=== PATIENT | male | born 1955 | race Hispanic/Latino ===

== ENCOUNTER 2018-11-23 07:03 | Day surgery (SDC) | payer MEDICARE ==
[2018-11-16 12:53] VITALS: BMI 36.8
[2018-11-23] MEDS ORDERED: Propofol 10 mg/ml Inj (20 ML) ONE ×2 (08:39→08:58)
[2018-11-23] MEDS ORDERED: Sodium Chloride 0.9% 1,000 ML IV SCH (08:45)
[2018-11-23] MEDS ORDERED: Phenylephrine 10 mg/ml Inj ONE (08:50)
[2018-11-23 12:34] VITALS: BP 124/72; PULSE 86; RESP 14; TEMP 98; O2SAT 97
== END 2018-11-23 11:15 | disposition home or self-care (01) ==
LOC: ENDO 07:03
PROVIDERS: ATTEND Specialist
DX: Z12.11 Encounter for screening for malignant neoplasm of colon (principal); D12.2 Benign neoplasm of ascending colon; D12.3 Benign neoplasm of transverse colon; K57.30 Diverticulosis of large intestine without perforation or abscess without bleeding; I10 Essential (primary) hypertension; B19.20 Unspecified viral hepatitis C without hepatic coma; M19.90 Unspecified osteoarthritis, unspecified site; E78.5 Hyperlipidemia, unspecified; Z87.442 Personal history of urinary calculi; Z86.010 Personal history of colon polyps
CPT/HCPCS: 45380; 45381; 45385; 72HRC

== ENCOUNTER 2018-11-23 12:51 | Inpatient (IN) | payer MEDICARE ==
[2018-11-23 12:51] VITALS: BMI 36.8
[2018-11-23] MEDS ORDERED: Sodium Chloride 0.9% 1,000 ML IV ONE (13:13)
--- NOTE | 2018-11-23 13:22 | ED PDOC ---
Arrival/HPI - General Chief Complaint: Shortness Of Breath Time Seen by Provider: 11/23/18 13:06 Historian: Patient - History of Present Illness Narrative History of Present Illness (Text): 11/23/18 13:22 63 year old male, with past medical history of colon polyps and diverticulosis, presents to the ED complaining of tremors, shortness of breath and palpitations s/p colonoscopy this morning. Patient states having colonoscopy performed for colon polyps without any complications with the procedure. Patient informs onset of symptoms after coming home, prompting him to contact Dr. Syed, who subsequently referred patient to the ED for medical evaluation. Patient denies any other associated somatic complaints. Patient denies any fevers, headache, dizziness, chest pain, cough, abdominal pain, nausea, vomiting, diarrhea, back pain, neck pain, or any other complaints. PMD: Dr. Chung GI: Dr. Syed Time/Duration: 1-3 hours Symptom Onset: Gradual Symptom Course: Unchanged Activities at Onset: Light Context: Home Past Medical History - Provider Review Nursing Documentation Reviewed: Yes - Infectious Disease Hx of Infectious Diseases: None - Cardiac Hx Pacemaker: No - Neurological Hx Paralysis: No - Musculoskeletal/Rheumatological Hx Musculoskeletal Disorders: Yes - Psychiatric Hx Emotional Abuse: No Hx Physical Abuse: No Hx Substance Use: No - Anesthesia Hx Anesthesia Reactions: Yes (MANY YEARS AGO SOB) Hx Malignant Hyperthermia: No - Suicidal Assessment Feels Threatened In Home Enviroment: No Family/Social History - Physician Review Nursing Documentation Reviewed: Yes Family/Social History: Unknown Family HX Hx Alcohol Use: No (QUIT 37 YEARS AGO) Hx Substance Use: No Allergies/Home Meds Allergies/Adverse Reactions: Allergies No Known Allergies Allergy (Verified 06/20/14 12:55) Home Medications: Home Meds Medication Instructions Recorded Confirmed Allopurinol 300 mg PO QAM 06/20/14 11/23/18 Ergocalciferol [Vitamin D2] 50,000 iu PO MON 06/20/14 11/23/18 Levocetirizine Dihydrochloride 5 mg PO HS 06/20/14 11/23/18 Metoprolol Tartrate 25 mg PO BID 06/20/14 11/23/18 Omeprazole 40 mg PO QAM 06/20/14 11/23/18 Diltiazem HCl [Diltiazem ER] 240 mg PO DAILY 11/16/18 11/23/18 Losartan Potassium [Cozaar] 100 mg PO DAILY 11/16/18 11/23/18 Review of Systems - Physician Review All systems were reviewed & negative as marked: Yes - Review of Systems Constitutional: Other (Tremors). absent: Fevers Respiratory: SOB. absent: Cough Cardiovascular: Palpitations. absent: Chest Pain, JAY Gastrointestinal: absent: Abdominal Pain, Diarrhea, Nausea, Vomiting Genitourinary Male: absent: Dysuria, Urinary Output Changes Musculoskeletal: absent: Back Pain, Neck Pain Skin: absent: Rash Neurological: absent: Headache, Dizziness Physical Exam - Physical Exam Narrative Physical Exam (Text): 11/23/18 13:26 Constitutional: No acute distress. Tremulous. Head: Normocephalic. Atraumatic. Eyes: PERRL. ENT: Moist mucous membranes. Neck: Supple. Cardiovascular: Tachycardia. Chest: No tenderness. Respiratory: Clear to auscultation bilaterally. GI: Soft. Nontender. Nondistended. Back: No CVA tenderness. Musculoskeletal: No tenderness or swelling of extremities. Skin: No rash. Neurologic: Alert, no focal deficit. Vital Signs Reviewed: Yes Vital Signs Temp Pulse Resp BP Pulse Ox 11/23/18 13:20 100.3 F H 145 H 18 118/61 93 L Temperature: Febrile Blood Pressure: Normal Pulse: Tachycardic Respiratory Rate: Normal Appearance: Positive for: Well-Appearing, Non-Toxic, Comfortable Pain Distress: None Mental Status: Positive for: Alert and Oriented X 3 Medical Decision Making ED Course and Treatment: 11/23/18 13:13 Impression: 63 year old male presents to the ED for evaluation of tremors, palpitations and shortness of breath s/p colonoscopy this morning. Plan: -- VBG -- EKG -- Labs -- Chest X-ray -- IV Fluids -- Tylenol -- Blood Culture -- Urine Culture -- Influenza A B -- Urinalysis -- Reassess and disposition Prior Visits: Notes and results from previous visits were reviewed. Progress Notes: 11/23/18 13:13 EKG: Ordered, reviewed, and independently interpreted the EKG. Rate : 150 BPM Rhythm : Sinus Tachycardia Interpretation : No ST-segment elevations . 11/23/18 13:36 Code sepsis activated. 11/23/18 15:27 CT Abdomen and Pelvis, reviewed by radiologist: IMPRESSION: 1. Large heterogeneous mass in the right hepatic lobe incompletely characterized on this noncontrast CT examination. A dedicated CT scan/MRI of the abdomen without and with intravenous contrast with liver protocol is recommended for definitive characterization. 2. Bilateral nephrolithiasis, the largest non nonobstructing stone in the right interpolar region measures 6 mm. 3. 6 mm high density lesion in the interpolar region of the right kidney is statistically most compatible with a hemorrhagic cyst however correlation with CT scan of the abdomen without and with intravenous contrast is recommended for definitive evaluation. Chest X-ray, reviewed by radiologist: IMPRESSION: Confluent airspace disease in the right lung base and patchy airspace disease in the left lower lobe may represent multifocal pneumonia. Follow-up after medical management is recommended to ensure complete resolution. ICU evaluated patient, will repeat labs, telemetry admission for the time being, may upgrade to ICU depending on renal function and lactate. Dr. Trejo accepts patient onto his service. - RAD Interpretation Radiology Orders: 11/23/18 13:13 CHEST PORTABLE [RAD] Stat - EKG Interpretation Interpreted by ED Physician: Yes Type: 12 lead EKG - Medication Orders Current Medication Orders: Acetaminophen (Tylenol 325mg Tab) 975 mg PO ONCE PRN PRN Reason: Fever >100.4 F Sodium Chloride (Sodium Chloride 0.9%) 1,000 mls @ 2,000 mls/hr IV .Q30M ONE Stop: 11/23/18 13:42 - Scribe Statement The provider has reviewed the documentation as recorded by the Scribe Enoch Solis. All medical record entries made by the Scribe were at my direction and personally dictated by me. I have reviewed the chart and agree that the record accurately reflects my personal performance of the history, physical exam, medical decision making, and the department course for this patient. I have also personally directed, reviewed, and agree with the discharge instructions and disposition. Disposition/Present on Arrival - Present on Arrival Any Indicators Present on Arrival: No History of DVT/PE: No History of Uncontrolled Diabetes: No Urinary Catheter: No History of Decub. Ulcer: No History Surgical Site Infection Following: None - Disposition Have Diagnosis and Disposition been Completed?: Yes Diagnosis: Severe sepsis, Aspiration pneumonia Disposition: HOSPITALIZED Disposition Time: 15:28 Patient Plan: Admission, ICU Condition: GUARDED
[2018-11-23 13:30] LABS: VENOUS BLOOD GAS BASE EXCESS -7.8 mmol/L (0.0-2.0); VENOUS BLOOD GAS PO2 31 mm/Hg (30-55); VENOUS BLOOD PH 7.31 (7.32-7.43)
[2018-11-23 13:36] LABS: BASO # 0.02 K/mm3 (0.0-2.0); BASO % 0.1 % (0.0-3.0); EOS % 0.1 % (1.5-5.0); GRAN # 10.95 (1.4-6.5); GRAN % 79.9 % (50.0-68.0); HEMOGLOBIN 12.7 g/dL (14.0-18.0); LYMPH # 2.4 (1.2-3.4); LYMPH % 17.2 % (22.0-35.0); MEAN CELL VOLUME 86.7 fl (80.0-105.0); MEAN CORPUSCULAR HEMOGLOBIN 26.8 pg (25.0-35.0); MEAN PLATELET VOLUME 10.2 fl (7.0-11.0); MONO # 0.4 (0.1-0.6); MONO % 2.7 % (1.0-6.0); RBC 4.73 10^6/uL (3.5-6.1); RED CELL DISTRIBUTION WIDTH 14.9 % (11.5-14.5); WHITE BLOOD COUNT 13.7 10^3/uL (4.5-11.0)
[2018-11-23] MEDS ORDERED: Vancomycin 1gm in NS 250ml 1 GM/250 ML BAG IVPB STA (13:36)
[2018-11-23] MEDS ORDERED: Piperacill/Tazo 4.5gm in NS 4.5 GM/100 ML BAG IVPB STA (13:36)
[2018-11-23 13:41] LABS: ALBUMIN 4.2 g/dL (3.0-4.8); CALCIUM 9.5 mg/dL (8.4-10.5)
[2018-11-23 13:45] LABS: INR 1.29; PROTHROMBIN TIME 14.9 SECONDS (9.4-12.5)
[2018-11-23 14:00] LABS: PARTIAL THROMBOPLASTIN TIME 22.9 Seconds (25.1-36.5)
--- NOTE | 2018-11-23 14:18 | RAD ---
Date of service: 11/23/2018 HISTORY: Sepsis Patient COMPARISON: No prior. FINDINGS: LUNGS: Lungs are well inflated. There is confluent airspace disease in the right lung base and patchy airspace disease in the left lower lobe. There is mild pulmonary venous congestion. PLEURA: No pleural effusions or pneumothorax. CARDIOVASCULAR: The heart is normal in size. No aortic atherosclerotic calcification present. OSSEOUS STRUCTURES: Within normal limits for the patient's age. VISUALIZED UPPER ABDOMEN: Normal. OTHER FINDINGS: None. IMPRESSION: Confluent airspace disease in the right lung base and patchy airspace disease in the left lower lobe may represent multifocal pneumonia. Follow-up after medical management is recommended to ensure complete resolution.
[2018-11-23] MEDS ORDERED: Clindamycin 600mg/50ml D5W 600 MG/50 ML VIAL IVPB STA (14:29)
[2018-11-23 14:41] LABS: PH,URINE 5.5 (4.7-8.0); URINE BILIRUBIN NEGATIVE (NEGATIVE); URINE BLOOD NEGATIVE (NEGATIVE); URINE GLUCOSE (UA) NEGATIVE (NEGATIVE); URINE LEUKOCYTE ESTERASE NEGATIVE Leu/uL (NEGATIVE); URINE PROTEIN TRACE mg/dL (<30 mg/dL); URINE UROBILINOGEN 0.2 E.U./dL (<1 E.U./dL)
[2018-11-23 14:42] LABS: URINE APPEARANCE CLEAR (CLEAR); URINE COLOR YELLOW (YELLOW)
[2018-11-23 14:44] LABS: URINE RBC 0 - 2 /hpf (0-2); URINE WBC 0 - 2 /hpf (0-6)
[2018-11-23 14:45] LABS: URINE AMORPHOUS SEDIMENT FEW /hpf; URINE BACTERIA MOD /hpf
--- NOTE | 2018-11-23 15:17 | CT ---
Date of service: 11/23/2018 PROCEDURE: CT Abdomen and Pelvis without intravenous contrast HISTORY: colonoscopy today, septic COMPARISON: None. TECHNIQUE: CT scan of the abdomen and pelvis was performed without administration of intravenous contrast. Oral contrast was not administered. Coronal and sagittal reformatted images were obtained. . Radiation dose: Total exam DLP = 1171.21 mGy-cm. This CT exam was performed using one or more of the following dose reduction techniques: Automated exposure control, adjustment of the mA and/or kV according to patient size, and/or use of iterative reconstruction technique. FINDINGS: LOWER THORAX: There is subsegmental atelectasis in the visualized lower lobes worse on the left. LIVER: There is a large 15.1 x 10.4 x 12.3 cm heterogeneous mass in the right hepatic lobe. There are coarse eccentric calcifications anterior inferiorly in the mass. Moderate hepatomegaly. No intrahepatic ductal dilatation. GALLBLADDER AND BILE DUCTS: No calcified gallstones. No biliary dilatation. PANCREAS: Normal in size. No ductal dilatation. SPLEEN: Mild splenomegaly. ADRENALS: Normal in size. No discrete nodule. KIDNEYS AND URETERS: Both kidneys are normal in size. There are nonobstructing stones in both kidneys, the largest in the right interpolar region measures 6 mm. There is a 9 mm high attenuation lesion in the right interpolar region. VASCULATURE: No aortic aneurysm. There are aortic atherosclerotic calcifications present. BOWEL: The small bowel loops are normal in caliber. The colon is normal in size. No bowel dilatation or wall thickening. No bowel obstruction. APPENDIX: Not visualized. No inflammatory changes in the right lower quadrant. PERITONEUM: No free fluid. No free air. LYMPH NODES: No enlarged lymph nodes. BLADDER: Well distended and grossly normal in appearance. REPRODUCTIVE: The prostate gland is normal in size with central coarse calcifications. BONES: No acute fracture. Multilevel degenerative changes in the spine, worse at L2-3 with mild degenerative retrolisthesis of L2 on L3. OTHER FINDINGS: None. IMPRESSION: 1. Large heterogeneous mass in the right hepatic lobe incompletely characterized on this noncontrast CT examination. A dedicated CT scan/MRI of the abdomen without and with intravenous contrast with liver protocol is recommended for definitive characterization. 2. Bilateral nephrolithiasis, the largest non nonobstructing stone in the right interpolar region measures 6 mm. 3. 6 mm high density lesion in the interpolar region of the right kidney is statistically most compatible with a hemorrhagic cyst however correlation with CT scan of the abdomen without and with intravenous contrast is recommended for definitive evaluation.
[2018-11-23 16:26] LABS: VENOUS BLOOD GAS BASE EXCESS -1.5 mmol/L (0.0-2.0); VENOUS BLOOD GAS PO2 164 mm/Hg (30-55); VENOUS BLOOD PH 7.46 (7.32-7.43)
[2018-11-23 16:28] LABS: BASO # 0.01 K/mm3 (0.0-2.0); BASO % 0.1 % (0.0-3.0); EOS % 0.1 % (1.5-5.0); GRAN # 9.35 (1.4-6.5); GRAN % 86.3 % (50.0-68.0); HEMOGLOBIN 10.8 g/dL (14.0-18.0); LYMPH # 0.8 (1.2-3.4); LYMPH % 6.9 % (22.0-35.0); MEAN CELL VOLUME 84.4 fl (80.0-105.0); MEAN CORPUSCULAR HEMOGLOBIN 26.7 pg (25.0-35.0); MEAN CORPUSCULAR HGB CONC 31.7 g/dl (31.0-37.0); MEAN PLATELET VOLUME 9.4 fl (7.0-11.0); MONO # 0.7 (0.1-0.6); MONO % 6.6 % (1.0-6.0); RBC 4.04 10^6/uL (3.5-6.1); RED CELL DISTRIBUTION WIDTH 14.9 % (11.5-14.5); WHITE BLOOD COUNT 10.8 10^3/uL (4.5-11.0)
--- NOTE | 2018-11-23 16:29 | PCM.SEPTIC ---
Sepsis Progress Note - Reassessment Type Date of Evaluation: 11/23/18 Time of Evaluation: 16:29 Reassessment Type: Non-invasive reassessment - Non Invasive Reassessment Were the most recent vital sign reviewed: Yes Vital Sign (Latest): Temp Pulse Resp BP Pulse Ox 102.5 F H 120 H 18 105/50 L 91 L 11/23/18 15:00 11/23/18 15:00 11/23/18 15:00 11/23/18 15:00 11/23/18 15:00 Cardiovascular: Yes: Regular Rate, Rhythm, Tachycardia. No: JVD, Murmur Respiratory: Yes: Normal Breath Sounds. No: Accessory Muscle Use, Rhonchi, Wheezing, Respiratory Distress Capillary Refill: Normal (Less than 2 sec) Skin: Normal Color, Warm, Dry <Grace Smith - Last Filed: 11/23/18 17:03> - Non Invasive Reassessment Vital Sign (Latest): Temp Pulse Resp BP Pulse Ox 99.2 F 90 18 144/82 99 11/25/18 06:00 11/25/18 10:05 11/25/18 06:00 11/25/18 10:05 11/25/18 06:00 Cardiovascular: No: Regular Rate, Rhythm (Not attending of record for this resident. HR according to listed VS is tachycardic) <Lamonte Corrigan - Last Filed: 11/25/18 12:35>
[2018-11-23 17:10] LABS: ALB/GLOB RATIO 0.9 (1.1-1.8); ALBUMIN 3.1 g/dL (3.0-4.8); ALT/SGPT 33 U/L (7-56); AST/SGOT 64 U/L (17-59); BLOOD UREA NITROGEN 22 mg/dL (7-21); CALCIUM 8.1 mg/dL (8.4-10.5); GFR NON-AFRICAN AMERICAN 51; TROPONIN I 0.31 ng/mL
--- NOTE | 2018-11-23 17:23 | CARD ---
APPROVED REPORT Date of service: 11/23/2018 EKG Measurement Heart [id number] <Conclusion> Supraventricular tachycardia Inferior infarct, age undetermined Abnormal ECG
[2018-11-23] MEDS: Linezolid 600 mg in D5W 300 ml 600 MG/300 ML BAG IVPB SCH (23:51)
[2018-11-23] MEDS: Meropenem IV 1 gm in NS 1 GM/50 ML BAG IVPB SCH (23:52)
--- NOTE | 2018-11-24 02:00 | CON ---
DATE: 11/23/2018 This is a 63-year-old gentleman with history of hypertension, hepatitis C, colon polyps, and diverticulosis, who presented to ER complaining of high fever, tremor, shortness of breath, and palpitation after colonoscopy this morning by Dr. Syed. The patient reports that he was not aware about any complication of the procedure as Dr. Syed spoke with him after the colonoscopy. Once he found out about the patient's acute onset of symptoms, he was referred to [facility] ER for further management and monitoring. T-max reported 104. The patient, however, denies chest pain, cough, abdominal pain, nausea, vomiting, diarrhea, back pain, or neck pain. PAST MEDICAL HISTORY: Diverticulosis, colon polyps, hypertension, hepatitis C. SOCIAL HISTORY: The patient is ex-smoker. No alcohol or illicit drug abuse. ALLERGIES: NKDA. MEDICATIONS AT HOME: Allopurinol, vitamin D, metoprolol, omeprazole, diltiazem ER, and Cozaar. FAMILY HISTORY: Noncontributory. REVIEW OF SYSTEMS: Review of 12-organ systems other than mentioned in history of present illness is negative. PHYSICAL EXAMINATION: VITAL SIGNS: T-max 104.6, however, currently, the patient is afebrile; blood pressure 120/60; heart rate 100 to 105; oxygen saturation 95% on 2 liters nasal cannula; respiratory rate 18. GENERAL: The patient is talking in full sentences, he reports subjectively feeling much better. HEENT: Head and neck atraumatic. LUNGS: Few crackles bibasilarly. HERAT: Regular rate and rhythm, S1, S2 normal. ABDOMEN: Soft, nontender, nondistended. MUSCULOSKELETAL: Trace bilateral pedal and ankle edema. NEUROLOGIC: The patient moves all extremities spontaneously. SKIN: Moist. PSYCHIATRIC: The patient is alert, awake, oriented x3. Comfortable, not in respiratory or otherwise distress. LABORATORIES: WBC 13.7, hemoglobin 12.7, platelet count 427. Sodium 138, potassium 4.3, chloride 103, carbon dioxide 18, BUN 23, creatinine 1.5. AST 72, ALT 33, total bilirubin 0.7, magnesium 1.8, phosphorus 4.1, albumin 4.2. Venous blood gas showed pH 7.31, lactic acid 9.4, pCO2 of 35. Influenza negative. Urine negative for urine nitrites and leukocyte esterase. INR 1.29. Medications given in the emergency room include Tylenol, clindamycin. The patient received 3 liters of normal saline. Vancomycin and Zosyn were also given in the emergency room. Chest x-ray showed bibasilar airspace disease, left lower lobe infiltrate, more predominant. CT of the abdomen and pelvis revealed large hepatic mass, which is heterogeneous in nature in the right hepatic lobe; bilateral nephrolithiasis; nonobstructive stones. ASSESSMENT AND PLAN: This is a 63-year-old gentleman who presented with what appears to be severe sepsis due to lower respiratory tract infection (pneumonia versus aspiration pneumonitis). No signs of viscous perforation on the CAT scan or any other acute findings (CT abdomen besides official report was also discussed with Dr. Tyson Carr and the mass in the liver does not appear to be abscess even though it is hard to be definite about it as study was done without contrast). The patient, however, substantially improved after fluid resuscitation and initial antibiotics. Septic workup would be definitely recommended including urine culture, blood culture, urine for legionella and streptococcal antigen. Even though a rapid flu test is negative, I wll recommend to proceed with Tamiflu. Infectious disease consult was also requested and that will be deferred to him. The patient is much improved, in good spirit. His blood pressure and heart rate also substantially improved. We will repeat CBC, CMP, lactic acid level, and troponin level. If lab results corroborate improvement in his clinical picture, the patient may be going to telemetry for further monitoring. I would also get procalcitonin level and trend it. We will continue to target euvolemia, euglycemia, normothermia, and oxygen saturation more than 90%. We will continue with DVT, GI prophylaxis. GI followup/consultation would be reasonable to decide whether to proceed with further workup of the hepatic mass, which may need to have hepatoma ruled out as the patient has hepatitis C history. Addendum: lsctic acidosis resolved, creatinine is down to 1.4, leukocytosis resolved. BP/HR relatively stable. trop slightly elevated-->will need to trend, however it is most likely due to previous tachycardia-->no chest pain and no specific ischemic changes on EKG: will get cardiology consult to consider echo, but no need for ICU at present time. If clinical situation worsened (hypotension, chest pain, uncontrolled severe tachycardia, respiratory distress, hypoxemia etc), please call icu for reconsult. ccm time 40 min Balaji Barrios MD BRIANA
[2018-11-24 07:30] LABS: HEMOGLOBIN 10.6 g/dL (14.0-18.0); MEAN CELL VOLUME 85.3 fl (80.0-105.0); MEAN CORPUSCULAR HEMOGLOBIN 26.4 pg (25.0-35.0); MEAN PLATELET VOLUME 9.7 fl (7.0-11.0); RBC 4.01 10^6/uL (3.5-6.1); RED CELL DISTRIBUTION WIDTH 15.1 % (11.5-14.5); WHITE BLOOD COUNT 15.1 10^3/uL (4.5-11.0)
[2018-11-24 07:42] LABS: ALB/GLOB RATIO 0.9 (1.1-1.8); ALBUMIN 3.1 g/dL (3.0-4.8); ALT/SGPT 38 U/L (7-56); AST/SGOT 381 U/L (17-59); BLOOD UREA NITROGEN 20 mg/dL (7-21); CALCIUM 8.8 mg/dL (8.4-10.5); GFR NON-AFRICAN AMERICAN > 60
--- NOTE | 2018-11-24 08:15 | CP.PCM.CON ---
<RetaMelody - Last Filed: 11/24/18 13:24> History of Present Illness - History of Present Illness History of Present Illness: PGY-[address] Aguirre ID consult: CAP Mr Velázquez, 63M, with PMH Hep C, liver disease, colon polyps, diverticulosis, and questionable allergy to anesthesia many years ago came to the ED c/o tremors, palpitations, SOB. Pt underwent colonoscopy yesterday morning (11/23/18). Colonscopy found diverticulosis with 5 polyps, biopsied (biggest 15mm in ascending colon, hot snare, clipped). pt was told No ASA, NSAID x 2 weeks. After returning home from the procedure, pt c/o tremors, palpitations, SOB. Pt started to have sore throat 2 weeks ago. Then 3 days ago, dry cough with R upper back pain, and chills. He had flu shot this year (+) animal contact, cockatiel at home. ROS: denies any fevers, headache, dizziness, chest pain, cough, abdominal pain, nausea, vomiting, diarrhea, back pain, neck pain, or any other complaints. PMH HTN/HLD/PVD Hep C, treated, last med 05/05, (+) detectable viral load Liver disease, Hx colon polyps Arthritis, gout, peripheral edema Hx kidney stones, b/l, s/p laser lithotripsy 2012 with stents Vertigo former smoker, quit 1987 Anxiety, occasional PSH Knee replacement R (09/2017),L (11/2017) Cyctoscopy with stents s/p removal (4 years ago) lithotripsy Inguinal Hernia repair with mesh (10/18/2016) EGD Colonoscopy FH Father, [place], 70yo Denies FH of cancer SH Quit smoking 1987; Quit ETOH 37 years ago, denies drugs. Live senior building All Anesthesia, SOB, many years ago Med Allupurionl, vit D2, levocetirizine, metoprolol, omeprazole, diltiazem, losartan PMD: Dr Chung GI: Dr Syed Urol: Dr Noriega Upon ED arrival, T 104.6, HR 145, RR 36, PaO2 93NC CBC: WBC 13.7, Hb 12.7 (Mcv 86.7), Lactate 9.4, procalcitonin 17.45 LFT 72/33, TB normal, INR 1.29, alb 4.2 U/A neg, flu neg EKG: Sinus tachycardia 150 BPM. TWI in II, III. QTc 522 CXR: Confluent airspace disease in R lung base, patchy airspace, Left lower lobe, multifocal PNA. CT A/P: Large mass in R hepatic lobe, bilateral nephrolithiasis (non- obstructing, largest R 6mm), kidney cyst ? hemorrhagic, 6mm Blood culture and urine culture obtained. pending MRSA, sputum cx. He got tamifly, Vanco and zosyn x 1, started merem and linezolid Past Patient History - Infectious Disease Hx of Infectious Diseases: None - Past Social History Smoking Status: Never Smoked - CARDIAC Hx Cardiac Disorders: Yes Hx Hypertension: Yes Hx Pacemaker: No - PULMONARY Hx Respiratory Disorders: No - NEUROLOGICAL Hx Neurological Disorder: No - HEENT Hx HEENT Problems: Yes (vertigo) - RENAL Hx Chronic Kidney Disease: No - ENDOCRINE/METABOLIC Hx Endocrine Disorders: No - HEMATOLOGICAL/ONCOLOGICAL Hx Blood Disorders: Yes Hx Hepatitis C: Yes - INTEGUMENTARY Hx Dermatological Problems: No - MUSCULOSKELETAL/RHEUMATOLOGICAL Hx Musculoskeletal Disorders: Yes Hx Arthritis: Yes Hx Back Pain: Yes Hx Falls: No - GASTROINTESTINAL Hx Gastrointestinal Disorders: No - GENITOURINARY/GYNECOLOGICAL Hx Genitourinary Disorders: No - PSYCHIATRIC Hx Psychophysiologic Disorder: No - SURGICAL HISTORY Hx Surgeries: Yes Hx Cholecystectomy: Yes Hx Orthopedic Surgery: Yes (b/l knee) - ANESTHESIA Hx Anesthesia Reactions: Yes (MANY YEARS AGO SOB) Hx Malignant Hyperthermia: No Meds Allergies/Adverse Reactions: Allergies Allergy/AdvReac Type Severity Reaction Status Date / Time No Known Allergies Allergy Verified 06/20/14 12:55 - Medications Medications: Current Medications Acetaminophen (Tylenol 325mg Tab) 975 mg PO ONCE PRN PRN Reason: Fever >100.4 F Last Admin: 11/23/18 13:34 Dose: 975 mg Allopurinol (Zyloprim) 300 mg PO DAILY [facility] Diltiazem HCl (Cardizem Cd) 240 mg PO DAILY [facility] Meropenem (Merrem Iv 1 Gm Premix) 1 gm in 50 mls @ 100 mls/hr IVPB Q12 [facility]; Protocol Stop: 12/01/18 22:22 Last Admin: 11/23/18 23:52 Dose: 100 mls/hr Linezolid (Zyvox 600mg/300ml D5w) 600 mg in 300 mls @ 200 mls/hr IVPB Q12 [facility]; Protocol Stop: 12/01/18 22:22 Last Admin: 11/23/18 23:51 Dose: 200 mls/hr Losartan Potassium (Cozaar) 100 mg PO DAILY [facility] Metoprolol Tartrate (Lopressor) 25 mg PO BRKDIN [facility] Last Admin: 11/24/18 07:51 Dose: 25 mg Physical Exam - Constitutional Appears: No Acute Distress - Head Exam Head Exam: ATRAUMATIC, NORMAL INSPECTION, NORMOCEPHALIC - Eye Exam Eye Exam: EOMI, Normal appearance, PERRL. absent: Scleral icterus Pupil Exam: NORMAL ACCOMODATION - ENT Exam ENT Exam: Mucous Membranes Moist - Neck Exam Additional comments: supple - Respiratory Exam Respiratory Exam: Decreased Breath Sounds (RUL), Clear to Auscultation Bilateral. absent: Rales, Rhonchi, Wheezes - Cardiovascular Exam Cardiovascular Exam: REGULAR RHYTHM, +S1, +S2 - GI/Abdominal Exam GI & Abdominal Exam: Normal Bowel Sounds, Soft. absent: Distended, Firm, Guarding, Rigid, Tenderness - Extremities Exam Extremities exam: Negative for: calf tenderness, pedal edema - Back Exam Back exam: CVA tenderness (L), CVA tenderness (R) - Neurological Exam Neurological exam: Alert, Oriented x3 - Psychiatric Exam Psychiatric exam: Normal Affect, Normal Mood - Skin Skin Exam: Dry, Warm Results - Vital Signs Recent Vital Signs: Last Vital Signs Temp 98.0 F 11/24/18 06:00 Pulse 84 11/24/18 06:00 Resp 20 11/24/18 06:00 BP 128/72 11/24/18 07:51 Pulse Ox 97 11/24/18 06:00 - Labs Result Diagrams: 11/24/18 07:00 11/24/18 07:00 Labs: Laboratory Results - last 24 hr 11/23/18 11/23/18 11/23/18 13:15 13:15 13:15 WBC 13.7 H RBC 4.73 Hgb 12.7 L Hct 41.0 L MCV 86.7 MCH 26.8 MCHC 31.0 RDW 14.9 H Plt Count 427 MPV 10.2 Gran % 79.9 H Lymph % (Auto) 17.2 L [place] % (Auto) 2.7 Eos % (Auto) 0.1 L Baso % (Auto) 0.1 Gran # 10.95 H Lymph # (Auto) 2.4 [place] # (Auto) 0.4 Eos # (Auto) 0.0 Baso # (Auto) 0.02 PT 14.9 H INR 1.29 APTT 22.9 L pO2 31 VBG pH 7.31 L VBG pCO2 35.0 L VBG HCO3 17.6 L VBG Total CO2 18.7 L VBG O2 Sat (Calc) 56.3 VBG Base Excess -7.8 L VBG Potassium 4.2 Sodium 136.0 Chloride 100.0 Glucose 144 H Lactate 9.4 H* FiO2 21.0 Potassium Carbon Dioxide Anion Gap BUN Creatinine Est GFR ( Amer) Est GFR (Non-Af Amer) Random Glucose Calcium Phosphorus Magnesium Total Bilirubin AST ALT Alkaline Phosphatase Troponin I Total Protein Albumin Globulin Albumin/Globulin Ratio Procalcitonin Venous Blood Potassium 4.2 Urine Color Urine Appearance Urine pH Ur Specific Greene Urine Protein Urine Glucose (UA) Urine Ketones Urine Blood Urine Nitrate Urine Bilirubin Urine Urobilinogen Ur Leukocyte Esterase Urine RBC Urine WBC Ur Epithelial Cells Amorphous Sediment Urine Bacteria Influenza Typ A,B (EIA) 11/23/18 11/23/18 11/23/18 13:15 14:15 14:15 WBC RBC Hgb Hct MCV MCH MCHC RDW Plt Count MPV Gran % Lymph % (Auto) [place] % (Auto) Eos % (Auto) Baso % (Auto) Gran # Lymph # (Auto) [place] # (Auto) Eos # (Auto) Baso # (Auto) PT INR APTT pO2 VBG pH VBG pCO2 VBG HCO3 VBG Total CO2 VBG O2 Sat (Calc) VBG Base Excess VBG Potassium Sodium 138 Chloride 103 Glucose Lactate FiO2 Potassium 4.3 Carbon Dioxide 18 L Anion Gap 21 H BUN 23 H Creatinine 1.5 Est GFR ( Amer) 57 Est GFR (Non-Af Amer) 47 Random Glucose 143 H Calcium 9.5 Phosphorus 4.1 Magnesium 1.8 Total Bilirubin 0.7 AST 72 H ALT 33 Alkaline Phosphatase 105 Troponin I Total Protein 8.2 Albumin 4.2 Globulin 4.0 Albumin/Globulin Ratio 1.0 L Procalcitonin Venous Blood Potassium Urine Color Yellow Urine Appearance Clear Urine pH 5.5 Ur Specific Greene 1.020 Urine Protein Trace H Urine Glucose (UA) Negative Urine Ketones Negative Urine Blood Negative Urine Nitrate Negative Urine Bilirubin Negative Urine Urobilinogen 0.2 Ur Leukocyte Esterase Negative Urine RBC 0 - 2 Urine WBC 0 - 2 Ur Epithelial Cells None Amorphous Sediment Few Urine Bacteria Mod Influenza Typ A,B (EIA) Negative for flu a/b 11/23/18 11/23/18 11/23/18 16:15 16:15 16:15 WBC 10.8 D RBC 4.04 Hgb 10.8 L Hct 34.1 L MCV 84.4 MCH 26.7 MCHC 31.7 RDW 14.9 H Plt Count 231 MPV 9.4 Gran % 86.3 H Lymph % (Auto) 6.9 L [place] % (Auto) 6.6 H Eos % (Auto) 0.1 L Baso % (Auto) 0.1 Gran # 9.35 H Lymph # (Auto) 0.8 L [place] # (Auto) 0.7 H Eos # (Auto) 0.0 Baso # (Auto) 0.01 PT INR APTT pO2 164 H VBG pH 7.46 H VBG pCO2 30.0 L VBG HCO3 21.3 VBG Total CO2 22.2 VBG O2 Sat (Calc) 99.8 H VBG Base Excess -1.5 L VBG Potassium 3.4 L Sodium 137.0 136 Chloride 107.0 109 H Glucose 101 Lactate 1.9 FiO2 21.0 Potassium 3.4 L Carbon Dioxide 20 L Anion Gap 10 BUN 22 H Creatinine 1.4 Est GFR ( Amer) > 60 Est GFR (Non-Af Amer) 51 Random Glucose 99 Calcium 8.1 L Phosphorus 1.3 L* Magnesium 1.6 L Total Bilirubin 0.6 AST 64 H ALT 33 Alkaline Phosphatase 105 Troponin I 0.31 H* Total Protein 6.5 Albumin 3.1 Globulin 3.4 Albumin/Globulin Ratio 0.9 L Procalcitonin Venous Blood Potassium 3.4 L Urine Color Urine Appearance Urine pH Ur Specific Greene Urine Protein Urine Glucose (UA) Urine Ketones Urine Blood Urine Nitrate Urine Bilirubin Urine Urobilinogen Ur Leukocyte Esterase Urine RBC Urine WBC Ur Epithelial Cells Amorphous Sediment Urine Bacteria Influenza Typ A,B (EIA) 11/23/18 11/23/18 11/24/18 17:00 20:00 07:00 WBC 15.1 H D RBC 4.01 Hgb 10.6 L Hct 34.2 L MCV 85.3 MCH 26.4 MCHC 31.0 RDW 15.1 H Plt Count 221 MPV 9.7 Gran % Lymph % (Auto) [place] % (Auto) Eos % (Auto) Baso % (Auto) Gran # Lymph # (Auto) [place] # (Auto) Eos # (Auto) Baso # (Auto) PT INR APTT pO2 VBG pH VBG pCO2 VBG HCO3 VBG Total CO2 VBG O2 Sat (Calc) VBG Base Excess VBG Potassium Sodium Chloride Glucose Lactate FiO2 Potassium Carbon Dioxide Anion Gap BUN Creatinine Est GFR ( Amer) Est GFR (Non-Af Amer) Random Glucose Calcium Phosphorus Magnesium Total Bilirubin AST ALT Alkaline Phosphatase Troponin I 0.32 H* Total Protein Albumin Globulin Albumin/Globulin Ratio Procalcitonin 17.45 H Venous Blood Potassium Urine Color Urine Appearance Urine pH Ur Specific Greene Urine Protein Urine Glucose (UA) Urine Ketones Urine Blood Urine Nitrate Urine Bilirubin Urine Urobilinogen Ur Leukocyte Esterase Urine RBC Urine WBC Ur Epithelial Cells Amorphous Sediment Urine Bacteria Influenza Typ A,B (EIA) 11/24/18 07:00 WBC RBC Hgb Hct MCV MCH MCHC RDW Plt Count MPV Gran % Lymph % (Auto) [place] % (Auto) Eos % (Auto) Baso % (Auto) Gran # Lymph # (Auto) [place] # (Auto) Eos # (Auto) Baso # (Auto) PT INR APTT pO2 VBG pH VBG pCO2 VBG HCO3 VBG Total CO2 VBG O2 Sat (Calc) VBG Base Excess VBG Potassium Sodium 137 Chloride 109 H Glucose Lactate FiO2 Potassium 3.8 Carbon Dioxide 26 Anion Gap 6 L BUN 20 Creatinine 1.2 Est GFR ( Amer) > 60 Est GFR (Non-Af Amer) > 60 Random Glucose 91 Calcium 8.8 Phosphorus Magnesium Total Bilirubin 0.5 AST 381 H D ALT 38 Alkaline Phosphatase 86 Troponin I Total Protein 6.6 Albumin 3.1 Globulin 3.4 Albumin/Globulin Ratio 0.9 L Procalcitonin Venous Blood Potassium Urine Color Urine Appearance Urine pH Ur Specific Greene Urine Protein Urine Glucose (UA) Urine Ketones Urine Blood Urine Nitrate Urine Bilirubin Urine Urobilinogen Ur Leukocyte Esterase Urine RBC Urine WBC Ur Epithelial Cells Amorphous Sediment Urine Bacteria Influenza Typ A,B (EIA) Assessment & Plan - Assessment and Plan (Free Text) Plan: Mr Plachta, 63M, with PMH Hep C (treated), liver disease, colon polyps, diverticulosis, and questionable allergy to anesthesia many years ago came to the ED c/o tremors, palpitations, SOB. Pt underwent colonoscopy yesterday morning (11/23/18). Pt had upper respiratory viral symptoms last week. Sepsis (T 104.6, HR 145, RR 36, WBC 13.7) likely secondary to pneumonia vs systemic viral illness Multifocacl PNA, CAP vs aspiration pneumonitis Possible influenza Chronic liver disease, hep C treated, MELD-Na 13 - Vanco and zosyn x 1 - merem and linezolid (day 2) - Tamiflu (day 1/5) - Continue to follow hodge culture, MRSA screen, trend WBC Imaging/Lab: - Lactate 9.4, procalcitonin 17.45 - LFT 72/33, TB normal, INR 1.29, alb 4.2 - U/A neg - flu neg - EKG: Sinus tachycardia 150 BPM. TWI in II, III. QTc 522 - CXR: Confluent airspace disease in R lung base, patchy airspace, Left lower lobe, multifocal PNA. - CT A/P: Large mass in R hepatic lobe, bilateral nephrolithiasis (non- obstructing, largest R 6mm), kidney cyst ? hemorrhagic, 6mm - B Cx: Neg x 1d - U Cx: Neg - Sputum Cx: - MRSA screen: s/r/d/w Dr Aguirre <Anthony Aguirre - Last Filed: 11/24/18 19:17> Meds - Medications Medications: Current Medications Acetaminophen (Tylenol 325mg Tab) 975 mg PO ONCE PRN PRN Reason: Fever >100.4 F Last Admin: 11/23/18 13:34 Dose: 975 mg Allopurinol (Zyloprim) 300 mg PO DAILY [facility] Last Admin: 11/24/18 10:01 Dose: 300 mg Diltiazem HCl (Cardizem Cd) 240 mg PO DAILY [facility] Last Admin: 11/24/18 10:04 Dose: 240 mg Meropenem (Merrem Iv 1 Gm Premix) 1 gm in 50 mls @ 100 mls/hr IVPB Q12 [facility]; Protocol Stop: 12/01/18 22:22 Last Admin: 11/24/18 10:00 Dose: 100 mls/hr Linezolid (Zyvox 600mg/300ml D5w) 600 mg in 300 mls @ 200 mls/hr IVPB Q12 [facility]; Protocol Stop: 12/01/18 22:22 Last Admin: 11/24/18 10:02 Dose: 200 mls/hr Losartan Potassium (Cozaar) 100 mg PO DAILY [facility] Last Admin: 11/24/18 10:01 Dose: 100 mg Metoprolol Tartrate (Lopressor) 25 mg PO BRKDIN [facility] Last Admin: 11/24/18 17:54 Dose: 25 mg Oseltamivir Phosphate (Tamiflu Cap) 75 mg PO BID [facility]; Protocol Stop: 11/29/18 18:01 Last Admin: 11/24/18 17:54 Dose: 75 mg Results - Vital Signs Recent Vital Signs: Last Vital Signs Temp 98.1 F 11/24/18 17:59 Pulse 104 H 11/24/18 17:59 Resp 19 11/24/18 17:59 BP 133/86 11/24/18 17:59 Pulse Ox 97 11/24/18 06:00 - Labs Result Diagrams: 11/24/18 07:00 11/24/18 07:00 Labs: Laboratory Results - last 24 hr 11/23/18 11/23/18 11/24/18 17:00 20:00 07:00 WBC 15.1 H D RBC 4.01 Hgb 10.6 L Hct 34.2 L MCV 85.3 MCH 26.4 MCHC 31.0 RDW 15.1 H Plt Count 221 MPV 9.7 Sodium Potassium Chloride Carbon Dioxide Anion Gap BUN Creatinine Est GFR ( Amer) Est GFR (Non-Af Amer) Random Glucose Calcium Total Bilirubin AST ALT Alkaline Phosphatase Troponin I 0.32 H* Total Protein Albumin Globulin Albumin/Globulin Ratio Alpha Fetoprotein Procalcitonin 17.45 H 11/24/18 11/24/18 07:00 10:20 WBC RBC Hgb Hct MCV MCH MCHC RDW Plt Count MPV Sodium 137 Potassium 3.8 Chloride 109 H Carbon Dioxide 26 Anion Gap 6 L BUN 20 Creatinine 1.2 Est GFR ( Amer) > 60 Est GFR (Non-Af Amer) > 60 Random Glucose 91 Calcium 8.8 Total Bilirubin 0.5 AST 381 H D ALT 38 Alkaline Phosphatase 86 Troponin I Total Protein 6.6 Albumin 3.1 Globulin 3.4 Albumin/Globulin Ratio 0.9 L Alpha Fetoprotein 1.6 Procalcitonin Assessment & Plan - Assessment and Plan (Free Text) Plan: Infectious diseases Attending Physician Attestation Patient seen and examined, discussed with medical support assistant. I have reviewed the patient's history of present illness, past medical, social, personal and family histories, pertinent physical exam findings, course so far in this hospital admission, pertinent laboratory and imaging results. I agree with the above findings, assessment and plan. In addition, we have started Zyvox, Merrem and Tamiflu for this patient with severe sepsis due to multifocal HCAP, R/O Influenza. Reviewed CXR and CT A/P. Follow up blood, sputum cx, PCT. Will need further evaluation of liver mass noted on CT A/P.
[2018-11-24] MEDS ORDERED: ALLOPURINOL 300 MG PO SCH (10:00)
[2018-11-24] MEDS ORDERED: Non Formulary Medication (Metoprolol Tartrate [Metoprolol Tartrate] 25 MG) PO SCH (10:00)
[2018-11-24] MEDS ORDERED: DILTIAZEM HCL 240 MG PO SCH (10:00)
[2018-11-24] MEDS: Meropenem IV 1 gm in NS 1 GM/50 ML BAG IVPB SCH ×2 (10:00→21:12)
[2018-11-24] MEDS: Linezolid 600 mg in D5W 300 ml 600 MG/300 ML BAG IVPB SCH ×2 (10:02→21:11)
[2018-11-24] MEDS: diltiaZEM 240 mg/24 Hours CD Cap PO SCH (10:04)
[2018-11-24] MEDS ORDERED: Iodixanol 320 mg/ml 150 ml Bottle IV ONE (10:48)
--- NOTE | 2018-11-24 12:02 | HP ---
DATE OF EXAM: 11/24/2018 CHIEF COMPLAINT AND HISTORY OF PRESENT ILLNESS: This is a 63-year-old male who is coming into the hospital because of shortness of breath. The patient had a colonoscopy done yesterday morning and was discharged home. He had multiple colon polyps that were taken out. He says when he was home he was having tremors. He was having palpitations and shortness of breath. He came in for further evaluation. The patient had this procedure done by Dr. Syed. The patient has a history of hepatitis C, colon polyps and diverticulosis. He says he is feeling better this morning. He received IV antibiotics in the ER. He has no fevers or chills. No nausea. No vomiting. This morning, no abdominal pain. No back pain. No dysuria or frequency. He does have a cough, but it is dry at this point. All of the review of symptoms are within normal limits except as mentioned. PAST MEDICAL HISTORY: 1. Kidney stones in 2012, status post lithotripsy. 2. Osteoarthritis. 3. Hepatitis C. 4. Hypertension. 5. Dyslipidemia. 6. Anxiety. PAST SURGICAL HISTORY: 1. Bilateral knee replacement. 2. Cystoscopy. 3. Lithotripsy. 4. Hiatal hernia with mesh in 09/2016. 5. EGD. 6. Colonoscopy. SOCIAL HISTORY: The patient quit smoking in 1987. He denies drug use. He stopped drinking about 37 years ago. FAMILY HISTORY: The patient's father had an LA and at 70. MEDICATIONS: Losartan, diltiazem, omeprazole, metoprolol, allopurinol and vitamin D. PHYSICAL EXAMINATION: VITAL SIGNS: Temperature is 98, pulse of 84, blood pressure 120/72, respirations 20 and O2 saturation 97%. Height is 5 feet 7 inches. Weight is 224 pounds. BMI is 35.1. GENERAL: The patient is lying in bed, comfortable, and in no acute distress. HEENT: Atraumatic and normocephalic. Anicteric sclerae. Moist mucosa. Matador conjunctivae. No oral lesions. NECK: No JVD, anterior and posterior adenopathy, thyromegaly, or bruits. CARDIOVASCULAR: S1 and S2 regular. No murmurs, rubs or gallops. LUNGS: Clear to auscultation bilaterally. No wheezes, rales, or rhonchi. ABDOMEN: Bowel sounds are positive. Soft, nontender and nondistended. No hepatosplenomegaly. No rebound and no guarding EXTREMITIES: No cyanosis, clubbing, or edema. NEUROLOGIC: No facial asymmetry. Tongue is midline. No uvula deviation. Power is 5/5 upper extremities and lower extremities. Sensation intact in upper extremities and lower extremities. PSYCHIATRIC: She is awake, alert and oriented x3. No anxiety or depression. She has normal affect. GENITOURINARY: No CVA tenderness. VASCULAR: 2+ pulses in the carotid pulses and pedal pulses. SKIN: No erythema or nodules SPINE: Shows normal curvature. LABORATORY DATA: White count of 13.7, hemoglobin 12.7 and platelet count is 427. Repeat white count is 15.1 this morning. INR is 1.29. Lactate was 9.4, repeat is 1.4. Chemistry shows the sodium is 137, potassium is 3.8, creatinine is 1.2 and albumin is 3.1. Urine shows blood is negative. Nitrates are negative. Bilirubin is negative. Serology is influenza is negative. CT of the abdomen and pelvis done, shows large heterogenous mass in the right hepatic lobe incompletely characterized. Bilateral nephrolithiasis, large nonobstructing stone in the right kidney that is 6 mm density in the right kidney, most likely a cyst. Chest x-ray done, shows a confluent airspace disease with right lung base and patchy airspace disease in the left lower lobe. His EKG shows sinus tachycardia at 149. QTC is 522, but it is difficult to assess by EKG. ASSESSMENT: 1. Aspiration pneumonia. 2. Large heterogenous mass in the right hepatic lobe. 3. Bilateral nephrolithiasis. 4. Hepatitis C. 5. Vertigo. 6. Colon polyps, status post polypectomy. PLAN: The patient is admitted to the hospital. The patient is going to be seen by Dr. Syed. He has been given IV fluids. He does not have a fever. The patient on Tylenol as needed. He is on allopurinol for his gout. He is on linezolid for his antibiotics. He is on a heart healthy diet. The patient is going to be seen by Cardiology with Dr. Lawrence. We will also get Dr. Bates for his pneumonia. The patient had a fever of 104 on admission. This morning, his fever has improved as 98.1. He is going to continue with a heart healthy diet. At this point, I will discontinue his telemetry monitoring. Florian Trejo MD
--- NOTE | 2018-11-24 14:13 | CON ---
DATE: 11/24/2018 GASTROENTEROLOGY CONSULTATION REQUESTING PHYSICIAN: Dr. Trejo. REASON FOR CONSULTATION/HISTORY OF PRESENT ILLNESS: I have been asked to see this 63-year-old male with a history of colon polyps, hepatitis C, failed multiple regimens of hepatitis C therapy, hypertension, diverticulosis, who underwent a colonoscopy with removal of a large polyp in the ascending colon with one episode of vomiting bilious fluid during the colonoscopy with suctioning of his oral airway, who developed chills upon returning home from his procedure. I told the patient to come to the emergency room immediately for further treatment and evaluation. The patient had a fever of 104 in the emergency room chest x-ray revealed patchy infiltrates suggesting possible aspiration pneumonia. He was also found to have a large heterogeneous mass in the liver. He currently denies any abdominal pain, nausea, vomiting. He denies any cough or shortness of breath. He denies any further fevers. Also, of note is that his troponins were found to be elevated. There is no known history of coronary artery disease. He denies any chest pain, palpitations or shortness of breath. He currently denies any cough. PAST MEDICAL HISTORY: As above. Again, he has a history of colon polyps, diverticulosis, hypertension, hepatitis C. SOCIAL HISTORY: The patient quit cigarette smoking years ago. He consumed alcohol heavily in his teens and twenties. He has denied any alcohol abuse over 20 years. FAMILY HISTORY: Noncontributory. REVIEW OF SYSTEMS: Fourteen-point review of systems is notable for chills and tremors. MEDICATIONS AT HOME: Include omeprazole, metoprolol, diltiazem ER Cozaar, allopurinol, and vitamin D. PHYSICAL EXAMINATION: GENERAL: Well-developed male, lying in bed, in no acute distress. VITAL SIGNS: Reveal a temperature of 98, blood pressure 128/72, heart rate of 84. HEENT: Reveals sclerae to be white. Conjunctivae pink. NECK: Supple. CHEST: Reveal lungs to be clear. HEART: Exam reveals regular rate and rhythm. ABDOMEN: Obese, soft, nontender. EXTREMITIES: Show no edema. LABORATORY DATA: Revealed a white blood cell count of 15.1, hemoglobin 10.6. Chemistries reveal AST 381, ALT 38. On admission to the hospital, his AST was 672, total bilirubin is 0.5, bicarb of 26, procalcitonin 17.45. Troponin is 0.32. Coags reveal PT of 14.9, INR 1.21. IMPRESSION: 1. This is a 63-year-old male with fever, chills, tremors after a colonoscopy. Clinically, this appears to be an aspiration pneumonia. The patient denies any shortness of breath or cough. 2. Heterogeneous mass in the liver, rule out hepatoma versus metastatic disease versus fatty infiltration of the liver. 3. Elevated troponins, rule out non-ST elevation myocardial infarction. RECOMMENDATIONS: 1. Continue IV antibiotics for aspiration pneumonia and possible sepsis syndrome. 2. Cardiology evaluation for elevated troponin. 3. We will request triple phase CT scan of the liver for further evaluation of a heterogeneous liver mass. Fidencio Syed MD
--- NOTE | 2018-11-24 15:19 | CON ---
DATE: 11/24/2018 CARDIOLOGY CONSULTATION HISTORY: The patient is a 63-year-old man, who presented with marked dyspnea and cough after a colonoscopy. He was found to have elevated troponins on admission. PAST MEDICAL HISTORY: The patient's past medical history is of cardiac disease; however, he does admit to history of hypertension. He denies chest pain, denies shortness of breath. He denies smoking. SOCIAL HISTORY: The patient has never smoked before, according to the patient. REVIEW OF SYSTEMS: A 14-point review of systems is reviewed. The patient is uninterested in going through his entire review of systems, "you guys are vultures." PHYSICAL EXAMINATION: VITAL SIGNS: Blood pressure is 128/72, heart rate is in the 80s. NECK: Negative JVD. LUNGS: Without rales. HEART: Reveals S1, S2. EXTREMITIES: Without edema. DIAGNOSTIC DATA: EKG shows normal sinus rhythm with nonspecific ST-T changes. LABORATORY DATA: Hemoglobin is 10.6, white count is 15. Troponins are 0.32 and 0.31. IMPRESSION: 1. Elevated troponins consistent with a non-ST elevation myocardial infarction. 2. High probability for coronary artery disease. 3. Hypertension. 4. Anemia. 5. Questionable hypercholesterolemia. PLAN: Given these findings, the patient is currently uninterested in hearing about any issues related to his elevated troponins, no unnecessary tests to be done. I have told him if he does have critical CAD, he is at high risk for a large heart attack and possible consequences. I have told him if he decides that he wanted to pursue any more investigation into his elevated troponins, he will let us know. Tyson Lawrence MD
--- NOTE | 2018-11-24 15:24 | CT ---
Date of service: 11/24/2018 CT Liver Protocol without/with IV contrast Indication: liver mass Technique: Contiguous axial images of the abdomen and pelvis without & with IV contrast utilizing liver protocol. Coronal and Sagittal reformats generated and reviewed. This CT exam was performed using 1 or more of the following dose reduction techniques: Automated exposure control, adjustment of the MAA and/or kV according to patient size, and/or use of iterative reconstruction technique. Contrast: 150 cc Visipaque 320 Radiation dose: Total exam DLP = 2435.46 MGy-cm. Comparison: CT abdomen pelvis without contrast performed 11/23/18 Findings: Visualized portions of the heart appear within normal limits of size. Hazy and patchy ground-glass infiltrates within the lingula and left lower lobe. Right basilar atelectasis. Heterogeneous right hepatic lobe mass measures approximately 15.7 x 12.8 x 14.3 cm (AP by transverse by cc) and demonstrates evidence of enhancement. Coarse eccentric calcifications are noted anterior and inferior to the mass. Hepatomegaly. Punctate nonobstructing renal calculi. 6 mm right midpole hyperdense focus on noncontrast imaging is not appreciated on post-contrast views. The kidneys enhance symmetrically. No hydronephrosis or obstructing calculi identified. 13 mm probable splenule. The spleen, pancreas, adrenal glands, and gallbladder appear otherwise unremarkable. Atherosclerotic calcifications of the aorta and branches. The stomach is nondistended. The bowel loops appear within normal limits of caliber without evidence of intestinal obstruction. There is no definite free air. No secondary signs of acute appendicitis. The prostate gland measures approximately 3.7 x 4.7 cm. The urinary bladder appears unremarkable. Degenerative changes of the spine. Impression: Heterogeneous large right hepatic lobe mass as above demonstrates evidence of post-contrast enhancement and has associated calcifications. Enhancement pattern is not pathognomonic of a specific etiology. Etiology uncertain as enhancement characteristics are not pathognomonic. Hepatocellular malignancy must be excluded. Recommend correlation with biopsy. Punctate nonobstructing renal calculi. 6 mm right midpole hyperdense focus on noncontrast imaging is not appreciated on post-contrast views. Renal ultrasound may be considered if indicated. No hydronephrosis or obstructing calculus identified. Hazy and patchy ground-glass infiltrates within the lingula and left lower lobe. Right basilar atelectasis. Additional incidental findings as above.
--- NOTE | 2018-11-25 06:16 | CP.PCM.PCO ---
Physician Communication Note - Physician Communication Note Physician Communication Note: Nursing Page Addendum Addendum: 11/25/18 05:43 Nursing paged to inform resident that patient wanted to leave AMA Upon evaluation it appeared that patient was voicing visual hallucinations / confusion stating that he had 5 - 6 visitors in the room During evaluation patient stating he wanted to sleep and made no mention of leaving AMA Given patient's clinical status, and fluctuating mental state; it appears patient is showing signs of delirium/ psychosis 2/2 infection vs hospitalization Patient does not show photosensitivity or signs of nuchal rigidity hence does not appear to be showing s/s of meninigitis Patient may benefit from IV / IM antipsychotic if he further exhibits worsening signs of agitation/ confusion
[2018-11-25] MEDS: diltiaZEM 240 mg/24 Hours CD Cap PO SCH (10:05)
[2018-11-25] MEDS: Meropenem IV 1 gm in NS 1 GM/50 ML BAG IVPB SCH ×2 (10:06→21:38)
[2018-11-25] MEDS: Linezolid 600 mg in D5W 300 ml 600 MG/300 ML BAG IVPB SCH ×2 (13:51→22:22)
--- NOTE | 2018-11-25 15:27 | PN ---
DATE: 11/25/2018 SUBJECTIVE: The patient had an episode of confusion last night. He has refused cardiac catheterization despite NSTEMI. He is aware of the possibility of sudden . CT scan of the liver triple-phase study yesterday revealed a large heterogeneous liver mass. He does have a history of hepatitis C. He denies any shortness of breath. He has a mild intermittent cough which has improved. He has not had any further fevers. PHYSICAL EXAMINATION: VITAL SIGNS: This morning revealed a temperature of 99.2, blood pressure 144/82, heart rate 90. HEENT: Reveals sclerae to be white. Conjunctivae pink. NECK: Supple. CHEST: Reveals mild scattered rhonchi. HEART: Reveals regular rate and rhythm. ABDOMEN: Soft, obese, nontender. EXTREMITIES: Show no edema. LABORATORY DATA: Reveal white blood cell count of 15.1 from 11/24/2018, hemoglobin 10.6. No new chemistries are available. IMPRESSION: 1. Systemic inflammatory response syndrome after a colonoscopy. 2. Probable aspiration pneumonia. 3. Gwc-OX-pverjccve myocardial infarction. 4. Large heterogeneous mass on CT scan concerning for neoplasm. His alpha-fetoprotein level was normal. RECOMMENDATIONS: 1. Continue antibiotics. I have discussed this case with Dr. Bates. 2. We will start the patient on a baby aspirin. 3. The patient will need a liver biopsy once his SIRS improves. Fidencio Syed MD
--- NOTE | 2018-11-25 20:01 | PN ---
DATE: 11/25/2018 SUBJECTIVE: The patient is 63-year-old, patient of Dr. Trejo, covering for him. The patient had colonoscopy done last week, started to have fever and chills, came to emergency room with chest pain, fever, and chills. So, he was admitted for aspiration pneumonia and was found to have large heterogeneous mass in the right hepatic lobe. Discussed the patient's condition with nurse. He was agitated last night, was hallucinating and wanted to sign against medical advice; however, he was given Ativan, seems to have improved. PHYSICAL EXAMINATION: GENERAL: The patient was found to be comfortable, sleepy, but arousable. VITAL SIGNS: He is afebrile, pulse 90, respirations 18, blood pressure 116/56. LUNGS: Bilateral few occasional expiratory rhonchi with soft crackle posteriorly. HEART: S1 and S2 audible. ABDOMEN: Soft, nontender. No rebound. No guarding. NEUROLOGICAL: The patient is awake and alert, but sleepy. EXTREMITIES: Bilateral legs, no edema. LABORATORY EXAM: WBC 15.1, hemoglobin 10.6, hematocrit 34.2, platelets of 221. Chemistry: Sodium 137, potassium 3.8, chloride 109, CO2 of 26, BUN 20, creatinine 1.2, blood sugar 91. His first troponin was 0.31, followup is 0.32. AST 381, ALT 38. Blood cultures are negative. ASSESSMENT: 1. Aspiration pneumonia. 2. Non-ST elevation myocardial infarction. 3. Hepatic mass. 4. Anemia. 5. Leukocytosis. PLAN: Currently, the patient is on aspirin. He is on diltiazem. He is on losartan. He is getting meropenem and Zyvox. We will start him on nebulizer treatment. Followup with CBC and CMP in a.m. Also, start on Ativan as needed for agitation. Nicholas Goff MD
[2018-11-25] MEDS: Albuterol-Ipratrop 3 mg / 0.5 (3 ml) UD IH SCH (20:52)
--- NOTE | 2018-11-25 21:19 | CP.PCM.PCO ---
<David Fisher - Last Filed: 11/25/18 21:15> Summary - Summary of Event Summary of Event: Notified by nurse that pt temp is 101.5 F. Chart was reviewed, patient admitted for aspiration pneumonia. Tylenol ordered. Blood cultures ordered. Blood cultures on admission reviewed were negative. <Diana Crowley - Last Filed: 11/26/18 02:41> Attending/Attestation - Attestation I have personally seen and examined this patient.: Yes I have fully participated in the care of the patient.: Yes I have reviewed all pertinent clinical information: Yes Notes (Text): 11/26/18 02:41 See my today's progress note.
--- NOTE | 2018-11-25 22:41 | PN ---
DATE: 11/25/2018 SUBJECTIVE: The patient is in bed in no acute distress, nontoxic. PHYSICAL EXAMINATION: VITAL SIGNS: Temperature is 99, T-max was 102.5, 2 days ago. The patient has been afebrile with a blood pressure of 140/90, respiratory rate of 18, heart rate of 107. HEENT: Unremarkable. NECK: Supple. CARDIOPULMONARY: Normal S1, S2. LUNGS: Decreased breath sounds. ABDOMEN: Soft. LABORATORY DATA: Laboratory examination reveals the patient's white count is 15,100, hemoglobin of 10. The patient's procalcitonin is elevated at 17.45 and creatinine is 1.2. Troponins are elevated and serology is negative. Microbiology reveals the sputum culture is pending. MRSA screen is negative. Urine cultures is negative. Blood cultures are negative. Review of orders reveals the patient to have to be on meropenem and Zyvox. The patient had a CT of the liver right hepatic mass. ASSESSMENT AND PLAN: The patient is a 63-year-old male with hepatitis C, liver disease, colon polyps, diverticulosis and anesthesia many years ago.. Had colonoscopy and with severe sepsis with multifocal healthcare-associated pneumonia and post procedure with negative cultures thus far with pending for sputum culture and influenza negative. Her elevated procalcitonin Tamiflu, meropenem and linezolid.. The patient is improving. We will be able to switch antibiotics to p.o. We will follow with you. Paco Bates MD
[2018-11-25 23:10] VITALS: O2SAT 95
--- NOTE | 2018-11-26 02:39 | CP.PCM.PN ---
Subjective - Date & Time of Evaluation Date of Evaluation: 11/26/18 Time of Evaluation: 02:35 - Subjective Subjective: S:It was requested to co-sign order. For tylenol and blood culture. Had temp <101*F. Medical record was reviewed. O: Stable. Not in distress. Resting comfortably. LUNGS: Normal breathing pattern. A:Pyrexia. Add CXR, U/A,C&S. Is already on antibiotic. Will be followed up by ID cassandra consultant in AM. Objective - Vital Signs/Intake and Output Vital Signs (last 24 hours): Temp Pulse Resp BP Pulse Ox 100 F H 93 H 78 H 125/76 95 11/25/18 22:45 11/25/18 22:00 11/25/18 22:00 11/25/18 22:00 11/25/18 22:00 - Medications Medications: Current Medications Acetaminophen (Tylenol 325mg Tab) 975 mg PO ONCE PRN PRN Reason: Fever >100.4 F Last Admin: 11/23/18 13:34 Dose: 975 mg Acetaminophen (Tylenol 325mg Tab) 650 mg PO Q6H PRN PRN Reason: Fever >100.4 F Albuterol/Ipratropium (Duoneb 3 Mg/0.5 Mg (3 Ml) Ud) 3 ml IH [id number] [facility] Last Admin: 11/25/18 20:52 Dose: 3 ml Allopurinol (Zyloprim) 300 mg PO DAILY [facility] Last Admin: 11/25/18 13:52 Dose: 300 mg Aspirin (Aspirin Chewable) 81 mg PO DAILY [facility] Last Admin: 11/25/18 18:13 Dose: 81 mg Diltiazem HCl (Cardizem Cd) 240 mg PO DAILY [facility] Last Admin: 11/25/18 10:05 Dose: 240 mg Meropenem (Merrem Iv 1 Gm Premix) 1 gm in 50 mls @ 100 mls/hr IVPB Q12 [facility]; Protocol Stop: 12/01/18 22:22 Last Admin: 11/25/18 21:38 Dose: 100 mls/hr Linezolid (Zyvox 600mg/300ml D5w) 600 mg in 300 mls @ 200 mls/hr IVPB Q12 [facility]; Protocol Stop: 12/01/18 22:22 Last Admin: 01/05/19 22:22 Dose: 200 mls/hr Lorazepam (Ativan) 1 mg IVP Q6H PRN; Protocol PRN Reason: Anxiety Last Admin: 11/25/18 22:57 Dose: 1 mg Losartan Potassium (Cozaar) 100 mg PO DAILY [facility] Last Admin: 11/25/18 10:05 Dose: 100 mg Metoprolol Tartrate (Lopressor) 25 mg PO BRKDIN [facility] Last Admin: 11/25/18 18:12 Dose: 25 mg Oseltamivir Phosphate (Tamiflu Cap) 75 mg PO BID [facility]; Protocol Stop: 11/29/18 18:01 Last Admin: 11/25/18 18:12 Dose: 75 mg - Labs Labs: 11/24/18 07:00 11/24/18 07:00 PT 14.9 SECONDS (9.4-12.5) H 11/23/18 13:15 INR 1.29 11/23/18 13:15 APTT 22.9 Seconds (25.1-36.5) L 11/23/18 13:15
[2018-11-26] MEDS: Albuterol-Ipratrop 3 mg / 0.5 (3 ml) UD IH SCH ×4 (03:00→19:57)
[2018-11-26 07:57] LABS: BASO # 0.02 K/mm3 (0.0-2.0); BASO % 0.2 % (0.0-3.0); EOS # 0.5 (0.0-0.7); EOS % 4.3 % (1.5-5.0); GRAN # 8.13 (1.4-6.5); GRAN % 71.8 % (50.0-68.0); HEMOGLOBIN 10.4 g/dL (14.0-18.0); LYMPH # 1.6 (1.2-3.4); MEAN CELL VOLUME 84.2 fl (80.0-105.0); MEAN CORPUSCULAR HEMOGLOBIN 25.7 pg (25.0-35.0); MEAN CORPUSCULAR HGB CONC 30.6 g/dl (31.0-37.0); MEAN PLATELET VOLUME 9.9 fl (7.0-11.0); MONO # 1.1 (0.1-0.6); MONO % 9.7 % (1.0-6.0); RBC 4.04 10^6/uL (3.5-6.1); RED CELL DISTRIBUTION WIDTH 14.9 % (11.5-14.5); WHITE BLOOD COUNT 11.3 10^3/uL (4.5-11.0)
[2018-11-26 08:25] LABS: ALB/GLOB RATIO 0.9 (1.1-1.8); ALBUMIN 3.3 g/dL (3.0-4.8); ALT/SGPT 26 U/L (7-56); AST/SGOT 173 U/L (17-59); BLOOD UREA NITROGEN 15 mg/dL (7-21); CALCIUM 8.8 mg/dL (8.4-10.5); GFR NON-AFRICAN AMERICAN > 60
[2018-11-26] MEDS: diltiaZEM 240 mg/24 Hours CD Cap PO SCH (09:40)
[2018-11-26] MEDS: Meropenem IV 1 gm in NS 1 GM/50 ML BAG IVPB SCH (09:41)
[2018-11-26] MEDS: Linezolid 600 mg in D5W 300 ml 600 MG/300 ML BAG IVPB SCH (09:42)
[2018-11-26 10:12] LABS: URINE BILIRUBIN NEGATIVE (NEGATIVE); URINE BLOOD NEGATIVE (NEGATIVE); URINE GLUCOSE (UA) NEGATIVE (NEGATIVE); URINE LEUKOCYTE ESTERASE NEGATIVE Leu/uL (NEGATIVE); URINE PROTEIN NEGATIVE mg/dL (<30 mg/dL); URINE UROBILINOGEN 0.2 E.U./dL (<1 E.U./dL)
[2018-11-26 10:13] LABS: URINE APPEARANCE CLEAR (CLEAR); URINE COLOR YELLOW (YELLOW)
--- NOTE | 2018-11-26 10:36 | RAD ---
Date of service: 11/26/2018 HISTORY: T [id number] COMPARISON: 11/23/2018 TECHNIQUE: Chest PA and lateral FINDINGS: LUNGS: There improvement in the previously seen left lower lobe infiltrate. There is linear atelectasis at the right lung base PLEURA: No significant pleural effusion identified. No pneumothorax apparent. CARDIOVASCULAR: No aortic atherosclerotic calcification present. Normal cardiac size. No pulmonary vascular congestion. OSSEOUS STRUCTURES: No significant abnormalities. VISUALIZED UPPER ABDOMEN: Normal. OTHER FINDINGS: None. IMPRESSION: There improvement in the previously seen left lower lobe infiltrate. There is linear atelectasis at the right lung base
[2018-11-26] MEDS ORDERED: Potassium Chloride 20 mEq/15 ml LIQ UD PO STA ×2 (10:54→13:15)
[2018-11-26] MEDS: Cefpodoxime (Vantin) 200 mg Tab PO SCH ×2 (13:26→21:32)
--- NOTE | 2018-11-26 14:17 | PN ---
DATE: 11/26/2018 SUBJECTIVE: The patient is in bed, seen earlier today. He did have low-grade fevers. He is doing well. No nausea, no vomiting. He had no symptoms of influenza before the procedure. PHYSICAL EXAMINATION: VITAL SIGNS: His temperature is 99, T-max yesterday was 101.5, blood pressure is 110/60, respiratory rate 18, and heart rate of 85. HEENT: Unremarkable. NECK: Supple. LUNGS: Decreased breath sounds. HEART: Normal S1 and S2. ABDOMEN: Soft and nontender. EXTREMITIES: Examination of the right arm at the IV site, there is mild erythema at the IV site. LABORATORY DATA: Review of the temperature curve reveals the patient had been afebrile most of the 11/23/2018 and 11/24/2018 and most of the 11/25/2018. Yesterday's temperature of 101 is new. Microbiology reveals that his sputum culture is pending. MRSA is not detected. Urine culture is negative. Blood cultures are negative. Chest x-ray from this morning is reviewed and there is improvement in left lower lobe infiltrate and the patient's pulmonary symptoms have resolved. ASSESSMENT AND PLAN: This is a 63-year-old male, who has a history of hepatitis C, liver disease, colon polyps, diverticulosis, had a colonoscopy on 11/23/2018, had severe sepsis, multifocal healthcare-associated pneumonia, post procedures, I doubt influenza. The patient was perfectly well until the procedure. Discontinue Tamiflu and the influenza serologies are negative. Since the methicillin-resistant staphylococcus aureus screen is negative, we will discontinue with the Linezolid and I think this new fever is from the right arm IV site. We will discontinue the IV site, discontinue intravenous antibiotics; and the patient's blood cultures were ordered yesterday because of the new fever, we will check on that. We will discontinue the Zyvox. I doubt that the patient is going to be bacteremic because he was on Zyvox. We will discontinue Zyvox and we will place the patient on p.o. Vantin. He did have a bacterial pneumonia because of a procalcitonin of 17 and his renal function has greatly improved. We will check on the repeat blood cultures, treat the patient with p.o. Vantin, IV access is an issue, and discontinue isolation, discontinue the Tamiflu. The patient did have non-ST elevation myocardial infarction as per Cardiology and we will switch to p.o. Vantin. Since the patient's QTc is 522, we will check on the repeat blood cultures and repeat procalcitonin. At this time, we will make further recommendation. Isolation can be discontinued as well as the Tamiflu, Zyvox, and meropenem. IV access is an issue. We will give p.o. Vantin. With the prolonged QTc of 522, quinolones are contraindicated. Paco Bates MD
[2018-11-26 15:12] VITALS: RESP 20
--- NOTE | 2018-11-26 15:13 | PN ---
DATE: 11/26/2018 CARDIOLOGY FOLLOWUP SUBJECTIVE: The patient is comfortable this morning. PHYSICAL EXAMINATION: VITAL SIGNS: Blood pressure 110/68 and heart rate in the 80s. NECK: Negative JVD. LUNGS: Without rales. HEART: S1 and S2. EXTREMITIES: Without edema. LABORATORY DATA: Hemoglobin is 10.4 and white count is 11.3. BUN and creatinine unremarkable. IMPRESSION: 1. Non-ST elevated myocardial infarction. 2. High probability for coronary artery disease. 3. Hypertension. 4. Anemia. 5. Pneumonia. Given these findings, I have discussed his high probability for CAD with the patient and need for cardiac catheterization. I repeated our discussion from yesterday. The patient refuses any procedures to be done at [facility] and wants only to go to [facility] and which he will do on his own when he is ready. Tyson Lawrence MD
--- NOTE | 2018-11-26 17:16 | PN ---
DATE: 11/26/2018 SUBJECTIVE: The patient had low grade temperature of 100 last night. His cough is less. He denies any shortness of breath. He denies any abdominal pain. PHYSICAL EXAMINATION: VITAL SIGNS: Reveal temperature of 99, blood pressure 110/68, heart rate of 85. HEENT: Reveal sclerae to be white. Conjunctivae pink. NECK: Supple. CHEST: Lungs are clear. HEART: Reveals regular rate and rhythm. ABDOMEN: Soft, nontender. No mass. EXTREMITIES: Show no edema. LABORATORY DATA: Reveal hemoglobin 10.4, white blood cell count 11.3, potassium 3.5. IMPRESSION: 1. Systemic inflammatory response syndrome with probable aspiration pneumonia. 2. Heterogeneous appearance to liver. History of hepatitis C; rule out malignant lesion. 3. Acute non-ST elevation myocardial infarction. The patient has refused cardiac catheterization. RECOMMENDATIONS: 1. Continue antibiotics. I have discussed this case with Dr. Bates and will consider switching the patient over to p.o. antibiotics. 2. The patient will need an outpatient elective liver biopsy. Fidencio Syed MD
--- NOTE | 2018-11-26 20:20 | PN ---
DATE: 11/26/2018 SUBJECTIVE: The patient is 63-year-old [place] male, walking around, complaining of right upper quadrant discomfort, scanty cough. PHYSICAL EXAMINATION: VITAL SIGNS: He is afebrile, pulse 85, respirations 18, and blood pressure 110/68. LUNGS: Bilateral soft crackle in upper lung region and in the right lower lung region. HEART: S1 and S2 audible. ABDOMEN: Soft, obese, slight right upper quadrant discomfort. NEUROLOGICAL: The patient is awake, alert, oriented, communicative. LABORATORY EXAM: WBC 11.3, hemoglobin 10.4, hematocrit 34, and platelets of 39,000. Chemistry: Sodium 136, potassium 3.5, chloride 103, CO2 of 25, BUN 15, creatinine 0.9, blood sugar 194. AST 173. HIV test is negative. ASSESSMENT: 1. Right hepatic mass. Plan for CT-guided biopsy in the morning probably. 2. Left lower lobe pneumonia. 3. Status post colonoscopy. 4. History of hepatitis C. 5. History of diverticulosis. PLAN: ID's input noted and appreciated. The patient is out of contact isolation. His flu test is negative. So, we will continue patient on aspirin 81 daily. He is on diltiazem and losartan for blood pressure control. His potassium is supplemented. He is on Vantin. Patient's disposition plan for discharge tomorrow; after that issue is addressed for possible biopsy, according to that disposition and plan will be made. Nicholas Goff MD
[2018-11-27] MEDS: Albuterol-Ipratrop 3 mg / 0.5 (3 ml) UD IH SCH ×2 (04:55→07:58)
[2018-11-27 07:19] LABS: HEMOGLOBIN 11.8 g/dL (14.0-18.0); MEAN CELL VOLUME 84.1 fl (80.0-105.0); MEAN CORPUSCULAR HEMOGLOBIN 26.1 pg (25.0-35.0); MEAN CORPUSCULAR HGB CONC 31.1 g/dl (31.0-37.0); MEAN PLATELET VOLUME 9.5 fl (7.0-11.0); RBC 4.52 10^6/uL (3.5-6.1); RED CELL DISTRIBUTION WIDTH 15.1 % (11.5-14.5); WHITE BLOOD COUNT 9.1 10^3/uL (4.5-11.0)
--- NOTE | 2018-11-27 07:39 | CP.PCM.PN ---
<Melody Mcduffie - Last Filed: 11/27/18 13:10> Subjective - Date & Time of Evaluation Date of Evaluation: 11/27/18 Time of Evaluation: 10:28 - Subjective Subjective: ID Progress Note PGY-[address] Aguirre Pt denies any acute complaint. No runny nose, sore throat, SPICER, f/c, SOB, CP, n/v/d/c, dysuria Objective - Vital Signs/Intake and Output Vital Signs (last 24 hours): Temp Pulse Resp BP Pulse Ox 101.2 F H 113 H 20 138/86 95 11/26/18 22:00 11/26/18 22:00 11/26/18 22:00 11/26/18 22:00 11/26/18 22:00 Intake and Output: 11/27/18 11/27/18 06:59 18:59 Intake Total 120 Balance 120 - Medications Medications: Current Medications Acetaminophen (Tylenol 325mg Tab) 975 mg PO ONCE PRN PRN Reason: Fever >100.4 F Last Admin: 11/23/18 13:34 Dose: 975 mg Acetaminophen (Tylenol 325mg Tab) 650 mg PO Q6H PRN PRN Reason: Fever >100.4 F Last Admin: 11/26/18 21:31 Dose: 650 mg Albuterol/Ipratropium (Duoneb 3 Mg/0.5 Mg (3 Ml) Ud) 3 ml IH [id number] [facility] Last Admin: 11/27/18 04:55 Dose: Not Given Allopurinol (Zyloprim) 300 mg PO DAILY [facility] Last Admin: 11/26/18 09:39 Dose: 300 mg Aspirin (Aspirin Chewable) 81 mg PO DAILY [facility] Last Admin: 11/26/18 09:39 Dose: 81 mg Cefpodoxime Proxetil (Vantin) 200 mg PO Q12 [facility]; Protocol Stop: 12/01/18 11:16 Last Admin: 11/26/18 21:32 Dose: 200 mg Diazepam (Valium) 5 mg PO HS [facility]; Protocol Last Admin: 11/26/18 21:32 Dose: 5 mg Diltiazem HCl (Cardizem Cd) 240 mg PO DAILY [facility] Last Admin: 11/26/18 09:40 Dose: 240 mg Lorazepam (Ativan) 1 mg IVP Q6H PRN; Protocol PRN Reason: Anxiety Last Admin: 11/25/18 22:57 Dose: 1 mg Lorazepam (Ativan) 1 mg PO Q6H PRN; Protocol PRN Reason: Anxiety Last Admin: 11/26/18 23:19 Dose: 1 mg Losartan Potassium (Cozaar) 100 mg PO DAILY [facility] Last Admin: 11/26/18 09:38 Dose: 100 mg Metoprolol Tartrate (Lopressor) 25 mg PO BRKDIN [facility] Last Admin: 11/26/18 17:18 Dose: 25 mg - Labs Labs: 11/27/18 06:30 11/26/18 07:00 PT 14.9 SECONDS (9.4-12.5) H 11/23/18 13:15 INR 1.29 11/23/18 13:15 APTT 22.9 Seconds (25.1-36.5) L 11/23/18 13:15 - Constitutional Appears: No Acute Distress - Head Exam Head Exam: ATRAUMATIC, NORMAL INSPECTION, NORMOCEPHALIC - Eye Exam Eye Exam: EOMI, Normal appearance, PERRL. absent: Scleral icterus Pupil Exam: NORMAL ACCOMODATION - ENT Exam ENT Exam: Mucous Membranes Moist - Neck Exam Additional comments: supple - Respiratory Exam Respiratory Exam: Clear to Ausculation Bilateral. absent: Rales, Rhonchi, Wheezes - Cardiovascular Exam Cardiovascular Exam: REGULAR RHYTHM, +S1, +S2. absent: Murmur - GI/Abdominal Exam GI & Abdominal Exam: Soft, Normal Bowel Sounds. absent: Guarding, Rigid, Tenderness Additional comments: no suprapubic tenderness - Extremities Exam Extremities Exam: absent: Calf Tenderness, Pedal Edema - Back Exam Back Exam: absent: CVA tenderness (L), CVA tenderness (R) - Neurological Exam Neurological Exam: Alert, Awake, Oriented x3 - Psychiatric Exam Psychiatric exam: Normal Affect, Normal Mood - Skin Skin Exam: Dry, Warm Additional comments: R forearm ecchymosis 2inch-2ich, tender, no increased warm Assessment and Plan - Assessment and Plan (Free Text) Plan: Mr Velázquez, 63M, with PMH Hep C (treated), liver disease, colon polyps, diverticulosis, and questionable allergy to anesthesia many years ago came to the ED c/o tremors, palpitations, SOB. Pt underwent colonoscopy yesterday morning (11/23/18). Pt had upper respiratory viral symptoms last week. He had new onset fever of 101.2. Severe Sepsis on admission (T 104.6, HR 145, RR 36, WBC 13.7, lactate 9) likely secondary to Multifocacl HCAP 2 New fever at day 3-4 of hospital stay, r/o cellulitis/phlebitis from R arm IV site NSTEMI, high probability of CAD Elevated procalcitonin, questionable solely from pneumonia, r/o malignancy or endocrinology cause Chronic liver disease, hep C treated, MELD-Na 13 QTc 522 Bird exposure, cockatiel at home - Continue Vantin PO (day 2) - s/p merem and linezolid x 4 days (discontinue on 11/26 due to negative MRSA screen) - Vanco and zosyn x 1 in ED - Continue to follow repeat culture, VS - Discontinue droplet isolation, unlikely flu - Outpatient liver biopsy - Pt refused cardiac cath - Fever resolved. If spike another fever, consider repeat Chest CT to r/o abscess - Follow on test on strep/legionella/mycobacteria/chlamydia, ebv/cmv Imaging/Lab: - flu neg - EKG: Sinus tachycardia 150 BPM. TWI in II, III. QTc 522 - CXR: Confluent airspace disease in R lung base, patchy airspace, Left lower lobe, multifocal PNA. - CXR (11/26): Improves LLL infiltrate. Linear atelactasis R lung - CT A/P: Large mass in R hepatic lobe, bilateral nephrolithiasis (non- obstructing, largest R 6mm), kidney cyst ? hemorrhagic, 6mm - B Cx (11/23): Neg x 3d - B Cx (11/23): Neg x 1d - U Cx (11/23): Neg - U Cx (11/26): neg - Sputum Cx (11/24):___pending____ - MRSA screen: Neg - repeat procalcitonin_16.25 s/r/d/w Dr Aguirre <Anthony Aguirre - Last Filed: 11/27/18 16:56> Objective - Vital Signs/Intake and Output Vital Signs (last 24 hours): Temp Pulse Resp BP Pulse Ox 97.4 F L 82 20 137/90 95 11/27/18 06:00 11/27/18 10:06 11/27/18 06:00 11/27/18 10:06 11/27/18 06:00 Intake and Output: 11/27/18 11/27/18 06:59 18:59 Intake Total 120 Balance 120 - Labs Labs: 11/27/18 06:30 11/27/18 06:30 PT 14.9 SECONDS (9.4-12.5) H 11/23/18 13:15 INR 1.29 11/23/18 13:15 APTT 22.9 Seconds (25.1-36.5) L 11/23/18 13:15 Assessment and Plan - Assessment and Plan (Free Text) Plan: Infectious diseases Attending Physician Attestation Patient seen and examined, discussed with lpn or medical assistant. I have reviewed the patient's history of present illness, past medical, social, personal and family histories, pertinent physical exam findings, course so far in this hospital admission, pertinent laboratory and imaging results. I agree with the above findings, assessment and plan. In addition, complete 5 more days of PO Vantin for severe sepsis due to multifocal HCAP, clinically improving.
[2018-11-27 08:42] VITALS: BP 137/90; PULSE 82
[2018-11-27 08:47] LABS: HEPATITIS B SURFACE AG Negative (NEGATIVE)
[2018-11-27 08:54] VITALS: TEMP 97.4
[2018-11-27 08:54] LABS: HEPATITIS A IGM NEGATIVE (NEGATIVE); HEPATITIS B CORE AB NEGATIVE (NEGATIVE)
[2018-11-27 09:12] LABS: ALB/GLOB RATIO 0.9 (1.1-1.8); ALBUMIN 3.5 g/dL (3.0-4.8); ALT/SGPT 28 U/L (7-56); AST/SGOT 94 U/L (17-59); BLOOD UREA NITROGEN 20 mg/dL (7-21); CALCIUM 9.6 mg/dL (8.4-10.5); GFR NON-AFRICAN AMERICAN > 60
[2018-11-27] MEDS: diltiaZEM 240 mg/24 Hours CD Cap PO SCH (10:06)
[2018-11-27] MEDS: Cefpodoxime (Vantin) 200 mg Tab PO SCH (10:08)
[2018-11-27 10:19] LABS: HEPATITIS C ANTIBODY REACTIVE (NEGATIVE)
--- NOTE | 2018-11-27 16:15 | DS ---
HISTORY OF PRESENT ILLNESS: The patient has no complaints of any chest pain. No shortness of breath. No headaches or dizziness. He had aspiration pneumonia. He had improvement of his symptoms. He has a mass in his liver, he does not wish to get a biopsy done at this time. He says he was evaluated previously, he is going to follow with Dr. Syed. The patient had non-ST elevation IL. He was seen by Dr. Lawrence and offered cardiac cath, he has refused. He says he prefers to go to and we will look for negative cutter . I did advise him to follow with Dr. Chung, so he can get evaluated. He understand that he may develop heart attack if he does not get this evaluated. He has no complaints of any headaches or dizziness. No nausea. No vomiting. PHYSICAL EXAMINATION: VITAL SIGNS: Temperature is 97.4, pulse of 82, blood pressure 137/90 and respirations 20. GENERAL: The patient is lying in bed, flat, comfortable. HEENT: No oral lesion. Anicteric sclerae. Moist mucosa. NECK: No JVD, adenopathy, or thyromegaly. CARDIOVASCULAR: S1 and S2, regular. No murmurs, rubs, or gallops. LUNGS: Clear to auscultation bilaterally. No wheeze, rales, or rhonchi. ABDOMEN: Bowel sounds are positive, soft, nontender and nondistended. EXTREMITIES: No cyanosis, clubbing or edema. LABORATORY DATA: White count of 9.1 and hemoglobin 11.8. Creatinine 0.9. ASSESSMENT: 1. Aspiration pneumonia, resolved. 2. Sepsis, improved. 3. Liver mass. 4. Bilateral nephrolithiasis. 5. Hepatitis C. 6. Vertigo. 7. Colon polyps, status post polypectomy. 8. Non-ST elevation myocardial infarction. PLAN: The patient is currently comfortable. He is on Ativan. He is going to continue losartan for hypertension. He is on metoprolol for his IL. The patient is on aspirin daily. He was advised to continue with aspirin and metoprolol. He is going to continue with heart healthy diet at home. CONDITION: Stable. ACTIVITIES: Increase as tolerated. FOLLOWUP: 1. Followup with Dr. Chung in 1-2 weeks. 2. Followup with Cardiology in 1-2 weeks. Florian Trejo MD [facility] # [id number]
== END 2018-11-27 12:29 | disposition home or self-care (01) | DRG 871 ==
LOC: ED 12:51 → ERH 16:29 → 2RSO 18:02 → 5RNO 11-25 00:50
PROVIDERS: ADMIT Internal Medicine Nephrology; ATTEND Internal Medicine Nephrology
DX: A41.9 Sepsis, unspecified organism (principal); J69.0 Pneumonitis due to inhalation of food and vomit; I21.4 Non-ST elevation (NSTEMI) myocardial infarction; E87.2 Acidosis; I10 Essential (primary) hypertension; R65.20 Severe sepsis without septic shock; K57.30 Diverticulosis of large intestine without perforation or abscess without bleeding; I73.9 Peripheral vascular disease, unspecified; B19.20 Unspecified viral hepatitis C without hepatic coma; D64.9 Anemia, unspecified; E78.5 Hyperlipidemia, unspecified; N20.0 Calculus of kidney; Z96.653 Presence of artificial knee joint, bilateral; R16.0 Hepatomegaly, not elsewhere classified; R42 Dizziness and giddiness; Z87.891 Personal history of nicotine dependence; Z86.010 Personal history of colon polyps

== ENCOUNTER 2019-01-26 09:32 | Day surgery (SDC) | payer MEDICARE ==
[2019-01-24 13:06] VITALS: BMI 33.9
[2019-01-26 10:00] LABS: BASO # 0.02 K/mm3 (0.0-2.0); BASO % 0.2 % (0.0-3.0); EOS # 0.2 (0.0-0.7); EOS % 2.3 % (1.5-5.0); HEMOGLOBIN 12.6 g/dL (14.0-18.0); LYMPH # 2.4 (1.2-3.4); LYMPH % 27.7 % (22.0-35.0); MEAN CELL VOLUME 84.2 fl (80.0-105.0); MEAN CORPUSCULAR HEMOGLOBIN 25.9 pg (25.0-35.0); MEAN CORPUSCULAR HGB CONC 30.7 g/dl (31.0-37.0); MEAN PLATELET VOLUME 9.3 fl (7.0-11.0); MONO # 0.5 (0.1-0.6); MONO % 6.3 % (1.0-6.0); RBC 4.87 10^6/uL (3.5-6.1); RED CELL DISTRIBUTION WIDTH 15.9 % (11.5-14.5); WHITE BLOOD COUNT 8.6 10^3/uL (4.5-11.0)
[2019-01-26 10:15] LABS: INR 1.23; PARTIAL THROMBOPLASTIN TIME 32.1 Seconds (26.9-38.3); PROTHROMBIN TIME 13.9 SECONDS (9.4-12.5)
[2019-01-26 10:16] LABS: BLOOD UREA NITROGEN 22 mg/dL (7-21); CALCIUM 9.9 mg/dL (8.4-10.5); GFR NON-AFRICAN AMERICAN > 60
[2019-01-26] MEDS ORDERED: Midazolam 2 MG/2 ML VIAL ONE ×2 (11:38→11:58)
[2019-01-26] MEDS ORDERED: Lidocaine 1% Inj (20ml) ONE (11:39)
[2019-01-26] MEDS ORDERED: Midazolam 2 MG/2 ML VIAL IVP ONE (12:02)
[2019-01-26] MEDS ORDERED: Sodium Chloride 0.45% 1,000 ML IV SCH (12:15)
[2019-01-26] MEDS ORDERED: Oxycodone/Acetaminophen 5/325 mg Tab PO PRN (12:15)
--- NOTE | 2019-01-26 20:28 | CT ---
PROCEDURE: 1. CT-guided biopsy large right liver mass. 2. CT-guided biopsy lateral segment left lobe of the liver HISTORY: Hepatitis C. Large right liver mass. Evaluate for hepatoma. Biopsy left lobe to assess fibrosis/cirrhosis. PHYSICIAN(S): Tyson Carr MD. TECHNIQUE: The relative risks and indications of the procedure were explained to the patient and consent obtained. The patient was placed supine on the CT scanner and preliminary images through the liver obtained. Conscious sedation and monitoring were provided throughout the procedure by a nurse. The large right liver mass was addressed 1st. From a subxiphoid approach, a 17 gauge needle was advanced into the medial aspect of the large right liver mass. Its position was confirmed with CT. Multiple core biopsies were obtained. The needle was removed and a 2nd needle directed into the normal appearing lateral segment left lobe. Additional biopsies of the normal left lobe were obtained. The patient tolerated the procedure well. IMPRESSION: 1. CT-guided right liver mass biopsy. 2. CT-guided biopsy lateral segment left lobe of the liver
== END 2019-01-26 15:30 | disposition home or self-care (01) ==
LOC: SDS 09:32
PROVIDERS: ATTEND Radiology Vascular & Interventional Radiology
DX: K74.69 Other cirrhosis of liver (principal); B19.20 Unspecified viral hepatitis C without hepatic coma; I10 Essential (primary) hypertension
CPT/HCPCS: 36415; 47000; 77012; 80048; 85025; 85610; 85730; 88307; 88313; 99152; 99153; J2250; J2405; J3010; J7030

== ENCOUNTER 2019-02-13 13:45 | Outpatient (CLI) | payer MEDICARE | END 2019-02-13 13:46 | disposition home or self-care (01) | LOC: RAD 13:45 | DX: C22.0 Liver cell carcinoma (principal); B18.2 Chronic viral hepatitis C ==

== ENCOUNTER 2019-03-05 09:52 | Day surgery (SDC) | payer MEDICARE ==
[2019-01-24 13:06] VITALS: BMI 33.9
[2019-03-05 10:26] LABS: BASO # 0.04 K/mm3 (0.0-2.0); BASO % 0.5 % (0.0-3.0); EOS # 0.2 (0.0-0.7); EOS % 2.1 % (1.5-5.0); HEMOGLOBIN 13.9 g/dL (14.0-18.0); LYMPH % 24.9 % (22.0-35.0); MEAN CELL VOLUME 85.4 fl (80.0-105.0); MEAN CORPUSCULAR HEMOGLOBIN 26.4 pg (25.0-35.0); MEAN CORPUSCULAR HGB CONC 30.9 g/dl (31.0-37.0); MEAN PLATELET VOLUME 9.6 fl (7.0-11.0); MONO # 0.6 (0.1-0.6); RBC 5.27 10^6/uL (3.5-6.1); RED CELL DISTRIBUTION WIDTH 16.7 % (11.5-14.5)
[2019-03-05 10:37] LABS: INR 1.19; PROTHROMBIN TIME 13.4 SECONDS (9.4-12.5)
[2019-03-05 10:38] LABS: BLOOD UREA NITROGEN 24 mg/dL (7-21); CALCIUM 9.7 mg/dL (8.4-10.5); GFR NON-AFRICAN AMERICAN > 60
[2019-03-05] MEDS ORDERED: Midazolam 2 MG/2 ML VIAL ONE (13:18)
[2019-03-05] MEDS ORDERED: Midazolam 2 MG/2 ML VIAL IVP ONE (13:45)
[2019-03-05] MEDS ORDERED: Oxycodone/Acetaminophen 5/325 mg Tab PO PRN (14:06)
[2019-03-05] MEDS ORDERED: Sodium Chloride 0.45% 1,000 ML IV SCH (14:15)
[2019-03-05 15:02] VITALS: RESP 20; TEMP 98.2
[2019-03-05 15:41] VITALS: BP 137/73; PULSE 90; O2SAT 96
--- NOTE | 2019-03-05 19:40 | CT ---
PROCEDURE: CT guided liver biopsy. HISTORY: The cm right liver mass. History hepatitis C. Evaluate for hepatoma. Repeat biopsy PHYSICIAN(S): Tyson Carr MD. TECHNIQUE: The relative risks and indications of the procedure were explained to the patient and consent obtained. The patient was placed supine on the CT scanner and preliminary images through the liver obtained. Conscious sedation and monitoring were provided throughout the procedure by a nurse. Once again is seen a 718 cm large heterogeneous mass in the right lobe of the liver.. A right-sided approach was selected and the area prepped and draped in the usual sterile fashion. 1% Xylocaine was used to anesthetize the skin and soft tissues. A 17-gauge guiding needle was advanced into the lateral aspect of the large right liver mass. Its position was confirmed with CT. Using coaxial technique, multiple core biopsies were obtained. The postprocedure images show no evidence of significant hemorrhage. IMPRESSION: 1. CT-guided liver biopsy as described above.
== END 2019-03-05 15:40 | disposition home or self-care (01) ==
LOC: SDS 09:52
PROVIDERS: ATTEND Radiology Vascular & Interventional Radiology
DX: C22.0 Liver cell carcinoma (principal); B19.20 Unspecified viral hepatitis C without hepatic coma; I10 Essential (primary) hypertension; I73.9 Peripheral vascular disease, unspecified
CPT/HCPCS: 36415; 47000; 77012; 80048; 85025; 85610; 85730; 88307; J2250; J2405; J3010; J7030

== ENCOUNTER 2019-03-23 08:43 | Outpatient (CLI) | payer MEDICARE | END 2019-03-23 08:44 | disposition home or self-care (01) | LOC: RAD 08:43 ==

== ENCOUNTER 2019-04-04 10:51 | Day surgery (SDC) | payer MEDICARE ==
[2019-04-03 09:02] VITALS: BMI 35.4
[2019-04-04 11:24] LABS: BASO # 0.05 K/mm3 (0.0-2.0); BASO % 0.7 % (0.0-3.0); EOS # 0.2 (0.0-0.7); EOS % 2.8 % (1.5-5.0); HEMOGLOBIN 13.6 g/dL (14.0-18.0); LYMPH # 2.2 (1.2-3.4); LYMPH % 28.4 % (22.0-35.0); MEAN CELL VOLUME 85.2 fl (80.0-105.0); MEAN CORPUSCULAR HEMOGLOBIN 26.5 pg (25.0-35.0); MEAN CORPUSCULAR HGB CONC 31.1 g/dl (31.0-37.0); MEAN PLATELET VOLUME 9.8 fl (7.0-11.0); MONO # 0.6 (0.1-0.6); MONO % 7.7 % (1.0-6.0); RBC 5.14 10^6/uL (3.5-6.1); RED CELL DISTRIBUTION WIDTH 16.5 % (11.5-14.5); WHITE BLOOD COUNT 7.6 10^3/uL (4.5-11.0)
[2019-04-04 11:34] LABS: BLOOD UREA NITROGEN 22 mg/dL (7-21); CALCIUM 9.8 mg/dL (8.4-10.5); GFR NON-AFRICAN AMERICAN > 60
[2019-04-04 11:36] LABS: INR 1.17; PARTIAL THROMBOPLASTIN TIME 31.5 Seconds (26.9-38.3); PROTHROMBIN TIME 13.2 SECONDS (9.4-12.5)
[2019-04-04] MEDS ORDERED: Lidocaine PF 2% (5 ml) Inj (For Cardiac Arrhy) ONE (11:50)
[2019-04-04] MEDS ORDERED: Iodixanol 320 MG/ML 200 ML BOTTLE IV ONE (11:51)
[2019-04-04] MEDS ORDERED: Iodixanol 320 mg/ml 150 ml Bottle IV ONE (11:51)
[2019-04-04] MEDS ORDERED: Nitroglycerin 50mg in D5W 50 MG/250 ML BOTTLE IV ONE (11:51)
[2019-04-04] MEDS ORDERED: Midazolam 2 MG/2 ML VIAL ONE ×3 (12:55→13:44)
[2019-04-04 16:08] VITALS: BP 147/87; PULSE 80; RESP 16; TEMP 97.5; O2SAT 95
[2019-04-04] MEDS ORDERED: Sodium Chloride 0.45% 1,000 ML IV SCH (17:00)
[2019-04-04] MEDS ORDERED: Oxycodone/Acetaminophen 5/325 mg Tab PO PRN (17:00)
--- NOTE | 2019-04-04 17:45 | VASCULAR ---
Date of service: 04/04/2019 PROCEDURE: 1. SMA arteriogram 2. Sub selective celiac axis arteriogram 3. Right phrenic artery arteriogram and embolization HISTORY: Chronic hepatitis C. Large hepatocellular carcinoma. Arterial mapping and embolization prior to Y 90 radioembolization PHYSICIAN(S): Tyson Carr M.D. TECHNIQUE: The relative risks and indications of the procedure were explained to the patient and consent obtained. The patient was hydrated prior to the procedure and the appropriate labs drawn. The patient was placed supine on the arteriogram table and the right groin prepped and draped in the usual sterile fashion. Conscious sedation and monitoring were provided throughout the procedure by a nurse. Under ultrasound guidance, the right common femoral artery was punctured with a micropuncture set. A 5 Icelandic sheath was placed. Through the sheath over guidewire a 5 Icelandic sauce 3 catheter was used to engage the origin of the SMA. A limited DSA SMA arteriogram was performed. Next the Sos catheter was placed in the origin of the right phrenic artery. Injection revealed an enlarged right phrenic artery with supply to the hepatic tumor superiorly and laterally. Using coaxial technique, a 2.8 Icelandic Progreat microcatheter was advanced into the right phrenic artery. Sub selective DSA arteriograms were obtained the right phrenic artery near the dome of the diaphragm was embolized using 500-700 micron particles. Stasis was obtained. A 4 mm 0.018 micro coil was deposited in the right phrenic artery. The Sos 3 catheter was repositioned in the celiac axis. Using coaxial technique, the Progreat microcatheter was placed in the common hepatic artery. A DSA common hepatic arteriogram was performed. Next the catheter was placed in the left hepatic artery and a selective DSA left hepatic arteriogram was performed. No significant tumor supply was appreciated. Finding the micro catheter was placed in the enlarged right hepatic artery and multiple DSA right hepatic arteriograms performed. 4 millicuries of technetium 99 pertechnetate were instilled into the right hepatic artery to calculate shunt fractions. The catheter and sheath were removed hemostasis obtained with a Perclose device. The patient tolerated the procedure well. FINDINGS: The right phrenic artery is enlarged. Significant neovascularity and tumor supply is noted from the right phrenic artery involving the hepatic tumor superiorly and laterally. Liberal particle embolization and coil embolization was successfully performed of the right phrenic artery. No aberrant supply is identified off the proximal SMA. The right hepatic artery is markedly enlarged with tumor vascularity involving the right lobe of the liver. No significant shunting is appreciated to the portal vein or hepatic veins. No significant segment 4 supply to the tumor is identified. IMPRESSION: 1.Successful bland particle and coil embolization of the right phrenic artery. 2. Enlarged and hypervascular right hepatic artery supplying the large tumor in the right liver. No significant angiographic shunting is appreciated. No significant left hepatic artery supply is noted.
--- NOTE | 2019-04-05 14:47 | NM ---
Date of service: 04/04/2019 PROCEDURE: Venous shunt patency HISTORY: LIVER TO LUNG SHUNT COMPARISON: None TECHNIQUE: 4.7 mCi technetium 99 M MAA administered intravenously. FINDINGS: Employing standard planar and SPECT imaging techniques, Calculated% lung shunting 10.5%. IMPRESSION: Liver lung shunt 10.5%.
== END 2019-04-04 18:30 | disposition home or self-care (01) ==
LOC: SDSVAS 10:51
PROVIDERS: ATTEND Radiology Vascular & Interventional Radiology
DX: C22.0 Liver cell carcinoma (principal); B18.2 Chronic viral hepatitis C; I10 Essential (primary) hypertension
CPT/HCPCS: 36245 ×2; 36247; 36248; 36415; 37242; 75726; 75774; 77290; 78291; 80048; 85025; 85610; 85730; 99152; 99153; C1760 ×2; C1769 ×2; C1884; C1894; J1644; J2250; J2405; J3010; J7030; Q9966; Q9967

== ENCOUNTER 2019-04-09 09:45 | Outpatient (CLI) | payer MEDICARE | END 2019-04-09 09:46 | disposition home or self-care (01) | LOC: RAD 09:45 ==

== ENCOUNTER 2019-04-12 06:31 | Day surgery (SDC) | payer MEDICARE ==
[2019-04-03 09:02] VITALS: BMI 35.4
[2019-04-12 07:08] LABS: BASO # 0.04 K/mm3 (0.0-2.0); BASO % 0.7 % (0.0-3.0); EOS # 0.2 (0.0-0.7); EOS % 3.3 % (1.5-5.0); HEMOGLOBIN 12.2 g/dL (14.0-18.0); LYMPH % 17.7 % (22.0-35.0); MEAN CELL VOLUME 84.3 fl (80.0-105.0); MEAN CORPUSCULAR HEMOGLOBIN 26.5 pg (25.0-35.0); MEAN CORPUSCULAR HGB CONC 31.4 g/dl (31.0-37.0); MEAN PLATELET VOLUME 9.7 fl (7.0-11.0); MONO # 0.6 (0.1-0.6); MONO % 10.9 % (1.0-6.0); RBC 4.6 10^6/uL (3.5-6.1); WHITE BLOOD COUNT 5.8 10^3/uL (4.5-11.0)
[2019-04-12 07:13] LABS: INR 1.28; PARTIAL THROMBOPLASTIN TIME 30.7 Seconds (26.9-38.3); PROTHROMBIN TIME 14.5 SECONDS (9.4-12.5)
[2019-04-12 07:15] LABS: BLOOD UREA NITROGEN 24 mg/dL (7-21); CALCIUM 9.2 mg/dL (8.4-10.5); GFR NON-AFRICAN AMERICAN > 60
[2019-04-12] MEDS ORDERED: Iodixanol 320 mg/ml 150 ml Bottle IV ONE (07:25)
[2019-04-12] MEDS ORDERED: Lidocaine 2% Inj (20ml) ONE (07:25)
[2019-04-12] MEDS ORDERED: Iodixanol 320 MG/ML 200 ML BOTTLE IV ONE (07:25)
[2019-04-12] MEDS ORDERED: Nitroglycerin 50mg in D5W 50 MG/250 ML BOTTLE IV ONE (07:26)
[2019-04-12] MEDS ORDERED: Midazolam 2 MG/2 ML VIAL ONE ×2 (08:56→09:04)
[2019-04-12 12:16] VITALS: RESP 20; TEMP 98.2; O2SAT 96
[2019-04-12] MEDS ORDERED: Oxycodone/Acetaminophen 5/325 mg Tab PO PRN (12:35)
[2019-04-12] MEDS ORDERED: HYDROmorphone 2 mg/ml ISec IVP PRN (12:37)
[2019-04-12] MEDS ORDERED: Sodium Chloride 0.45% 1,000 ML IV SCH (12:45)
[2019-04-12 14:35] VITALS: BP 151/74; PULSE 79
--- NOTE | 2019-04-12 17:25 | VASCULAR ---
Date of service: 04/12/2019 PROCEDURE: Y 90 radioembolization of the right hepatic artery HISTORY: Large right hepatocellular carcinoma. Previous right phrenic bland embolization. Y 90 radioisotope embolization of the right hepatic artery COMPARISON: TECHNIQUE: The relative risks and indications of the procedure explained the patient consent obtained. The patient was hydrated prior to the procedure. The patient was placed supine on the arteriogram table in the right groin prepped and draped usual sterile fashion. Conscious sedation monitoring were provided throughout the procedure by a nurse. The right common femoral artery is punctured under ultrasound guidance with a micropuncture set. A 5 Senegalese sheath was placed. Through the sheath and over guidewire a 5 Senegalese C2 catheter was placed in the celiac axis origin. Using a coaxial technique, a high flow microcatheter was advanced into the common hepatic artery. A DSA common hepatic arteriogram was performed. The microcatheter was advanced sub selectively into the proximal right hepatic artery just beyond the cystic artery. Position was confirmed with DSA angiograms. 60 millicuries of Y 90 particles were instilled into the right hepatic artery under fluoroscopic guidance. The patient tolerated the procedure well. The sheath was removed hemostasis obtained with a Perclose device. FINDINGS: IMPRESSION: Y 90 radioembolization of the right hepatic artery as described above
== END 2019-04-12 15:30 | disposition home or self-care (01) ==
LOC: SDSVAS 06:31
PROVIDERS: ATTEND Radiology Vascular & Interventional Radiology
DX: C22.0 Liver cell carcinoma (principal)